=== PATIENT | female | born 1980 | race Caucasian/White ===

== ENCOUNTER → 2017-04-08 | Outpatient (REF) | payer BC | LOC: M SFHCWAGY 08:32 | PROVIDERS: ATTEND Nurse Practitioner Family | DX: Z12.4 Encounter for screening for malignant neoplasm of cervix (principal); R31.29 Other microscopic hematuria | CPT/HCPCS: 87086; G0123 ==

== ENCOUNTER → 2017-08-03 | Outpatient (CLI) | payer BC ==
[2017-08-03 16:38] LABS: BASO # 0.1 10^3/uL (0.0-0.2); BASO % 0.5 % (0.0-1.0); EOS # 0.1 10^3/uL (0.0-0.50); EOS % 0.8 % (0.0-3.0); HEMATOCRIT 33.4 % (36.0-47.0); HEMOGLOBIN 11.8 g/dl (12.0-15.5); IMMATURE GRANULOCYTE % 2.5 % (0-3.0); LYMPH # 2.1 10^3/uL (1.5-4.5); LYMPH % 15.5 % (24.0-44.0); MEAN CORPUSCULAR HEMOGLOBIN 32.7 pg (27.0-33.0); MEAN CORPUSCULAR HGB CONC 35.3 g/dl (32.0-36.5); MEAN CORPUSCULAR VOLUME 92.5 fl (80.0-96.0); MONO # 0.9 10^3/uL (0.0-0.8); MONO % 6.6 % (0.0-5.0); NEUTROPHILS % 74.1 % (36.0-66.0); PLATELET COUNT, AUTOMATED 266 10^3/uL (150-450); RED BLOOD COUNT 3.61 10^6/uL (4.00-5.40); RED CELL DISTRIBUTION WIDTH 12.1 % (11.5-14.5); WHITE BLOOD COUNT 13.5 10^3/uL (4.0-10.0)
[2017-08-03 18:31] LABS: CHLAMYDIA DNA AMPLIFICATION NEGATIVE (NEGATIVE); GC DNA AMPLIFICATION NEGATIVE (NEGATIVE)
[2017-08-04 11:38] LABS: RUBELLA IgG QUALITATIVE IMMUNE (IMMUNE)
[2017-08-04 11:41] LABS: HBsAg Prenatal NEGATIVE (NEGATIVE)
[2017-08-04 12:08] LABS: HIV 1&2 SCREEN CENTAUR NEGATIVE (NEGATIVE)
== END ==
LOC: M LAB 15:57
DX: Z34.81 Encounter for supervision of other normal pregnancy, first trimester (principal); Z3A.13 13 weeks gestation of pregnancy; Z36.89 Encounter for other specified antenatal screening
CPT/HCPCS: 86762

== ENCOUNTER → 2017-08-11 | Outpatient (CLI) | payer BC | LOC: M LAB 16:41 | DX: Z36.9 Encounter for antenatal screening, unspecified (principal) | CPT/HCPCS: 36415 ==

== ENCOUNTER → 2017-08-27 | Outpatient (CLI) | payer BC | LOC: M RAD 16:17 | DX: Z34.82 Encounter for supervision of other normal pregnancy, second trimester (principal); Z3A.19 19 weeks gestation of pregnancy | CPT/HCPCS: 76811 ==

== ENCOUNTER → 2017-09-25 | Outpatient (CLI) | payer BC | LOC: M SMT 14:20 | DX: Z36.89 Encounter for other specified antenatal screening (principal); Z3A.24 24 weeks gestation of pregnancy | CPT/HCPCS: 76816 ==

== ENCOUNTER → 2017-10-09 | Outpatient (CLI) | payer BC ==
[2017-10-09 10:46] LABS: BASO % 0.4 % (0.0-1.0); EOS # 0.2 10^3/uL (0.0-0.50); EOS % 1.8 % (0.0-3.0); HEMATOCRIT 34.5 % (36.0-47.0); HEMOGLOBIN 11.6 g/dl (12.0-15.5); IMMATURE GRANULOCYTE % 2.3 % (0-3.0); LYMPH # 1.1 10^3/uL (1.5-4.5); LYMPH % 10.7 % (24.0-44.0); MEAN CORPUSCULAR HEMOGLOBIN 32.8 pg (27.0-33.0); MEAN CORPUSCULAR HGB CONC 33.6 g/dl (32.0-36.5); MEAN CORPUSCULAR VOLUME 97.5 fl (80.0-96.0); MONO # 0.8 10^3/uL (0.0-0.8); NEUTROPHILS # 8.3 10^3/uL (1.8-7.7); NEUTROPHILS % 77.8 % (36.0-66.0); PLATELET COUNT, AUTOMATED 258 10^3/uL (150-450); RED BLOOD COUNT 3.54 10^6/uL (4.00-5.40); RED CELL DISTRIBUTION WIDTH 12.7 % (11.5-14.5); WHITE BLOOD COUNT 10.7 10^3/uL (4.0-10.0)
[2017-10-09 11:12] LABS: GLUCOSE CHALLENGE TEST 1 HOUR 63 MG/DL (LESS THAN 140)
== END ==
LOC: M SMT 07:58
DX: Z34.82 Encounter for supervision of other normal pregnancy, second trimester (principal); Z36.89 Encounter for other specified antenatal screening
CPT/HCPCS: 82950

== ENCOUNTER → 2017-12-22 | Outpatient (REF) | payer BC | LOC: M LAB REF 17:18 | DX: Z34.83 Encounter for supervision of other normal pregnancy, third trimester (principal) | CPT/HCPCS: 87081 ==

== ENCOUNTER 2018-01-13 18:59 | Inpatient (IN) | payer BC ==
[2018-01-13] MEDS ORDERED: LR 1,000 ML IV (20:48)
[2018-01-13] MEDS ORDERED: OXYTOCIN DRIP 30 UNITS in APPROPRIATE DILUENT 1 EA IV (21:00)
[2018-01-13 21:31] LABS: HEMATOCRIT 31.2 % (36.0-47.0); HEMOGLOBIN 10.5 g/dl (12.0-15.5); MEAN CORPUSCULAR HEMOGLOBIN 30.8 pg (27.0-33.0); MEAN CORPUSCULAR HGB CONC 33.7 g/dl (32.0-36.5); MEAN CORPUSCULAR VOLUME 91.5 fl (80.0-96.0); PLATELET COUNT, AUTOMATED 204 10^3/uL (150-450); RED BLOOD COUNT 3.41 10^6/uL (4.00-5.40); WHITE BLOOD COUNT 9.3 10^3/uL (4.0-10.0)
[2018-01-13] MEDS ORDERED: FENTANYL 2MCG/ML ROPIVACAINE 0.2% IN 0.9% NACL 200ML IVBAG As Ordered (23:37)
[2018-01-14] MEDS ORDERED: FENTANYL/ROPIVACAINE/NACL BAG 200 ML EPIDURAL (00:38)
[2018-01-14] MEDS ORDERED: EPIDURAL COMMENT XX (00:38)
[2018-01-14] MEDS ORDERED: NALOXONE INJ 0.4 MG/1 ML VIAL (J2310) IV (00:38)
[2018-01-14] MEDS ORDERED: EPIDURAL/PCA KEYS XX (00:38)
[2018-01-14] MEDS ORDERED: diphenhydrAMINE INJ 50MG/ML VIAL (J1200) IV (00:38)
[2018-01-14] MEDS ORDERED: ONDANSETRON 4MG/2ML VIAL (J2405) IV (00:38)
[2018-01-14] MEDS ORDERED: REFRIGERATOR IV KEYS XX (00:38)
[2018-01-14] MEDS ORDERED: LACTATED RINGER'S 1000 ML IV (00:38)
[2018-01-14] MEDS ORDERED: ePHEDrine SULFATE 25 MG/5 ML(5MG/ML) SYRINGE IV (00:38)
[2018-01-14] MEDS: OXYTOCIN DRIP 30 UNITS in APPROPRIATE DILUENT 1 EA IV (05:02)
[2018-01-14] MEDS ORDERED: MEASLES,MUMPS,RUBELLA VACCINE INJ (MMR-II) (90707) SC (05:15)
[2018-01-14] MEDS ORDERED: ACETAMINOPHEN 500 MG TAB PO (05:15)
[2018-01-14] MEDS ORDERED: DIBUCAINE 1% OINTMENT 30GM TOP (05:15)
[2018-01-14] MEDS ORDERED: MOM 30ML SUSPENSION UDC PO (05:15)
[2018-01-14] MEDS ORDERED: DOCUSATE SODIUM 100 MG CAP PO (05:15)
[2018-01-14] MEDS ORDERED: ANUSOL HC CREAM 30GM TOP (05:15)
[2018-01-14] MEDS ORDERED: METHYLERGONOVINE MALEATE 0.2 MG TAB PO (05:15)
[2018-01-14] MEDS ORDERED: RHOGAM 300 MCG (1500 IU) INJ (J2790) IM (05:15)
[2018-01-14] MEDS: IBUPROFEN 800 MG TAB PO ×3 (06:40→21:57)
[2018-01-14] MEDS: PRENATAL VITAMINS CHEWABLE TABLET PO (08:06)
[2018-01-15] MEDS: IBUPROFEN 800 MG TAB PO (08:04)
[2018-01-15] MEDS: PRENATAL VITAMINS CHEWABLE TABLET PO (08:05)
[2018-01-15] MEDS: INFLUENZA QUADRIVALENT PF VACCINE 0.5ML SYRINGE (90686) IM (10:50)
== END 2018-01-15 11:50 | disposition home or self-care (01) | DRG 560 ==
LOC: M LDO 18:59 → M OBS 01-14 07:28 → M LDI 19:15
PROVIDERS: Obstetrics & Gynecology
PROC: 10E0XZZ Delivery of Products of Conception, External Approach (ICD-10-PCS; principal; 2018-01-14)
PROC: 0HQ9XZZ Repair Perineum Skin, External Approach (ICD-10-PCS; 2018-01-14)
DX: O42.02 Full-term premature rupture of membranes, onset of labor within 24 hours of rupture (principal); O69.81X0 Labor and delivery complicated by cord around neck, without compression, not applicable or unspecified; O70.0 First degree perineal laceration during delivery; Z3A.39 39 weeks gestation of pregnancy; Z37.0 Single live birth

== ENCOUNTER → 2018-04-22 | Outpatient (REF) | payer BC ==
[~2018-04-22] MED LIST: IBUP-1114 PO; MAPA500T2 PO; PRENTAB9 PO
[2018-04-25 18:21] LABS: HPV HYBRID CAPTURE II Negative (Negative)
== END ==
LOC: M LAB REF 18:09
PROVIDERS: ATTEND Obstetrics & Gynecology
DX: Z12.4 Encounter for screening for malignant neoplasm of cervix (principal)
CPT/HCPCS: 87624; G0123

== ENCOUNTER → 2019-01-24 | Outpatient (REF) | payer BC | LOC: M LAB REF 09:24 | PROVIDERS: ATTEND Physician Assistant | DX: J02.9 Acute pharyngitis, unspecified (principal) ==

== ENCOUNTER → 2019-11-17 | Outpatient (REF) | payer BC | LOC: M SFHCPLAZ 10:30 | PROVIDERS: ATTEND Nurse Practitioner Family | DX: Z12.4 Encounter for screening for malignant neoplasm of cervix (principal) | CPT/HCPCS: 87624; G0123 ==

== ENCOUNTER → 2019-11-18 | Outpatient (CLI) | payer BC ==
--- NOTE | 2019-12-07 13:31 | REPMRS ---
Patient History The patient states she had a clinical breast exam in November 2019. Patient had first child at age 37. Family history of ovarian cancer at age 50 in maternal grandmother, lung cancer at age 71 in maternal grandfather. Digital Woman Screen Mammo: November 18, 2019 - Exam #: [id number] Bilateral CC and MLO view(s) were taken. Technologist: Karla Fish, Technologist No prior studies available for comparison. FINDINGS: The breast tissue is heterogeneously dense. This may lower the sensitivity of mammography. The Volpara volumetric breast density category is: C. There is no evidence of dominant mass, architectural distortion, or grouped microcalcification typical of malignancy. 3-D tomosynthesis shows no additional findings. Report was delayed due to a protracted computer network disruption experienced by this facility. Assessment: BI-RADS/ACR category 1 mammogram. Negative Mammogram. Recommendation Routine screening mammogram of both breasts in 1 year (for women over age 40). This patient's Lifetime Breast Cancer RIsk is estimated at 15.6 %. This mammogram was interpreted with the aid of an FDA-approved computer-aided dectection system. Electronically Signed By: Carter Banks MD 12/07/19 [id number]
--- NOTE | 2019-12-09 12:19 | REP ---
PELVIC ULTRASOUND INCLUDING TRANSABDOMINAL, ENDOVAGINAL, AND DOPPLER ULTRASOUND ASSESSMENT Delay in reporting results from malfunction of the hospital computer system as the result of a malware attack. FINDINGS: The uterus is anteverted and normal size measuring 8.0 x 4.4 x 5.7 cm. The endometrium measures 8 mm and is not unusually thickened. Within the myometrium, there is a focal heterogeneous zone in the body of the uterus anteriorly measuring 2.8 x 2.8 x 2.6 cm, likely a fibroid. It extends from the submucosal surface to the subserosal surface. RIGHT OVARY: The right ovary is normal size measuring 2.3 x 1.8 x 2.0 cm. There are multiple follicles. There is no dominant right ovarian mass or cyst. There is vascular flow in the right ovary with a Doppler resistive index in the parenchymal arteries measuring 0.58. LEFT OVARY: The left ovary is normal size measuring 3.2 x 2.2 x 2.2 cm. There is a left ovarian follicle measuring 1.3 x 1.5 x 1.7 cm. There is a second follicle containing internal debris measuring 1.1 x 1.1 x 1.1 cm. There is no dominant left ovarian mass or cyst otherwise. There is vascular flow in the left ovary with a Doppler resistive index in the parenchymal arteries measuring 0.48. IMPRESSION: There is a fibroid in the body of the myometrium anteriorly measuring up to 2.8 cm extending from the submucosal surface to the subserosal surface. There are two left ovarian follicles. Otherwise, negative pelvic ultrasound. MTDD
== END ==
LOC: M WHC 06:45
PROVIDERS: ATTEND Nurse Practitioner Family
DX: Z12.31 Encounter for screening mammogram for malignant neoplasm of breast (principal); N92.0 Excessive and frequent menstruation with regular cycle; D25.9 Leiomyoma of uterus, unspecified

== ENCOUNTER → 2020-02-25 | Outpatient (CLI) | payer BC ==
--- NOTE | 2020-02-25 10:43 | REP ---
INDICATION: R10.811 RUQ TENDERNESS. COMPARISON: None. TECHNIQUE: Right upper quadrant scanning. FINDINGS: Scanning through the right upper quadrant of the abdomen demonstrates a normal sized, thin-walled gallbladder without evidence of stone or polyp. Common bile duct is normal measuring 0.3 cm in greatest diameter. There is a 1.1 x 1.1 x 1.1 cm hyperechoic lesion high in the right lobe of the liver adjacent to the diaphragm consistent with a benign hemangioma. No other focal liver lesion is seen. Liver size is normal. No pancreatic abnormality is observed. No right renal abnormality is seen. There is no evidence of ascites. The right kidney measures 12.7 x 5.5 x 4.1 cm. IMPRESSION: 1.1 cm hyperechoic lesion in the right lobe of the liver near the diaphragm consistent with benign hemangioma. Otherwise negative right upper quadrant sonography.. <Electronically signed by Carter Banks > 02/25/20 3655
== END ==
LOC: M WHC 07:42
PROVIDERS: ATTEND Physician Assistant
DX: R10.811 Right upper quadrant abdominal tenderness (principal); K76.89 Other specified diseases of liver

== ENCOUNTER → 2020-02-25 | Outpatient (REF) | payer BC ==
[2020-02-25 10:55] LABS: HEMATOCRIT 39.4 % (36.0-47.0); HEMOGLOBIN 12.9 g/dl (12.0-15.5); MEAN CORPUSCULAR HEMOGLOBIN 31.1 pg (27.0-33.0); MEAN CORPUSCULAR HGB CONC 32.7 g/dl (32.0-36.5); MEAN CORPUSCULAR VOLUME 94.9 fl (80.0-96.0); PLATELET COUNT, AUTOMATED 223 10^3/uL (150-450); RED BLOOD COUNT 4.15 10^6/uL (4.00-5.40); WHITE BLOOD COUNT 4.4 10^3/uL (4.0-10.0)
[2020-02-25 11:26] LABS: ALBUMIN 4.2 GM/DL (3.2-5.2); ALT/SGPT 22 U/L (12-78); BILIRUBIN,TOTAL 0.6 MG/DL (0.2-1.0); BLOOD UREA NITROGEN 13 MG/DL (7-18); CALCIUM LEVEL 9.1 MG/DL (8.5-10.1); CARBON DIOXIDE LEVEL 28 MEQ/L (21-32); CHLORIDE LEVEL 109 MEQ/L (98-107); CHOLESTEROL LEVEL 139 MG/DL (<200); CHOLESTEROL RISK RATIO 2.278 (<5); CREATININE FOR GFR 0.72 MG/DL (0.55-1.30); GLOMERULAR FILTRATION RATE > 60.0 (>58); GLUCOSE, FASTING 78 MG/DL (70-100); HDL CHOLESTEROL 61 MG/DL (>40); LDL CHOLESTEROL 67 MG/DL (<100); NON-HDL-C 78 MG/DL; SODIUM LEVEL 142 MEQ/L (136-145); TOTAL PROTEIN 7.2 GM/DL (6.4-8.2); TRIGLYCERIDES LEVEL 55 MG/DL (<150)
== END ==
LOC: M PLALAB 08:35
PROVIDERS: ATTEND Physician Assistant
DX: R10.811 Right upper quadrant abdominal tenderness (principal); R10.11 Right upper quadrant pain; N92.0 Excessive and frequent menstruation with regular cycle; Z82.49 Family history of ischemic heart disease and other diseases of the circulatory system

== ENCOUNTER → 2020-03-21 | Outpatient (REF) | payer BC | LOC: M SFHCADAM 19:38 | PROVIDERS: ATTEND Physician Assistant | DX: R10.811 Right upper quadrant abdominal tenderness (principal); R50.9 Fever, unspecified ==

== ENCOUNTER → 2020-04-12 | Outpatient (CLI) | payer BC ==
[~2020-04-12] MED LIST changes: +GASTROGRAFIN SOLUTION 30ML (Q9963) As Ordered ONE; +ISOVUE-370 76% 100ML VIAL As Ordered ONE
--- NOTE | 2020-04-13 10:14 | REP ---
INDICATION: FAMILY HISTORY OF OVARIAN CANCER. COMPARISON: None TECHNIQUE: Axial contrast-enhanced images from the lung bases to the pubic symphysis using oral and 100 cc Isovue 370 intravenous contrast material. Precontrast images of the abdomen along with coronal and sagittal reformations obtained. This CT examination was performed using the following dose reduction techniques: Automated exposure control, adjustment of mA and/or kv according to the patient's size, and the use of iterative reconstruction technique. FINDINGS: Lung bases are clear. Visualized heart and pericardium normal. Liver includes 1.3 cm hypodensity in the posterior right lobe approaching the dome (series 301; image 20) which is nonspecific and may represent cyst versus hemangioma versus other pathology. The spleen, pancreas, gallbladder, bilateral adrenal glands and kidneys are normal. The enteric system including stomach, small, and large bowel appears normal. No evidence for obstruction or acute inflammatory process. Normal terminal ileum and appendix are identified in the right lower quadrant. Pelvis demonstrates normal bladder and age-appropriate uterus/adnexa with incidental 2.3 cm left ovarian cyst likely physiologic. No ascites. No free air. No intraperitoneal or retroperitoneal adenopathy. Abdominal aorta and vasculature appear normal. Musculoskeletal structures are intact and without acute osseous abnormality. IMPRESSION: 1. 1.3 cm hepatic hypodensity likely representing cyst versus hemangioma. Consider ultrasound evaluation follow-up. 2. A 2.3 cm left ovarian cyst is identified and most likely physiologic. 3. Otherwise normal CT of the abdomen and pelvis. <Electronically signed by Emanuel Gonzales > 04/13/20 1018
== END ==
LOC: M RAD 15:29
PROVIDERS: ATTEND Physician Assistant
DX: R10.11 Right upper quadrant pain (principal); Z80.41 Family history of malignant neoplasm of ovary
CPT/HCPCS: 74178; Q9963; Q9967

== ENCOUNTER → 2020-12-06 | Outpatient (CLI) | payer BC ==
[~2020-12-06] MED LIST changes: -GASTROGRAFIN SOLUTION 30ML (Q9963) As Ordered ONE; -ISOVUE-370 76% 100ML VIAL As Ordered ONE
--- NOTE | 2020-12-06 09:12 | REP ---
INDICATION: K76.89 DZ OF LIVER COMPARISON: CT dated 04/12/2020 TECHNIQUE: Real time quiñones scale ultrasound examination using curved array transducer. FINDINGS: Liver is normal in contour, size, and echogenicity measuring roughly 15 cm in craniocaudal length. There is a small 1.3 x 0.7 x 1.2 cm hyperechoic focus along the subdiaphragmatic right hepatic lobe which may represent small hemangioma. Pancreas is incompletely evaluated due to interposed bowel gas. The gallbladder is normal and without gallstones, wall thickening, or pericholecystic fluid. No biliary ductal dilatation is appreciated and the common bile duct measures 3.5 mm diameter. Right kidney is normal in reniform shape without hydronephrosis and measures 12.3 x 5.1 x 3.4 cm. No ascites in the visualized right upper quadrant. IMPRESSION: 1. Small hyperechoic focus in the right hepatic lobe. Finding is stable compared with ultrasound dated 02/25/2020 and most compatible with hemangioma. <Electronically signed by Emanuel Gonzales > 12/06/20 0908
== END ==
LOC: M RAD 08:26
PROVIDERS: ATTEND Student in an Organized Health Care Education/Training Program
DX: K76.89 Other specified diseases of liver (principal)

== ENCOUNTER → 2020-12-07 | Outpatient (CLI) | payer BC ==
--- NOTE | 2020-12-07 09:22 | REPMRS ---
Patient History The patient states she had a clinical breast exam in December 07, 2020. Family history of ovarian cancer at age 50 in maternal grandmother, unknown cancer at age 71 in maternal grandfather. Pt denied prengnancy. 5 lb unintentional weight gain. Patient states no breast complaints today. Patient has signed MRS History Sheet. Digital Woman Screen Mammo: December 07, 2020 - Exam #: [id number] Bilateral CC and MLO view(s) were taken. Technologist: RT Bee Prior study comparison: November 18, 2019, bilateral digital woman screen mammo performed at [facility]. FINDINGS: The breast tissue is heterogeneously dense. This may lower the sensitivity of mammography. The Volpara volumetric breast density category is: C. There is a moderate amount of heterogeneously dense fibroglandular tissue which is fairly symmetric. There is no interval development of dominant mass, architectural distortion, or grouped microcalcification typical of malignancy. There has been no change in the appearance of the mammogram from the prior studies. 3-D tomosynthesis shows no additional findings. Assessment: BI-RADS/ACR category 1 mammogram. Negative Mammogram. Recommendation Routine screening mammogram of both breasts in 1 year (for women over age 40). This patient's [facility] Lifetime Breast Cancer RIsk is estimated at 15.4 %. This mammogram was interpreted with the aid of an FDA-approved computer-aided dectection system. Electronically Signed By: Carter Banks MD 12/07/20 0921
== END ==
LOC: M WHC 08:19
PROVIDERS: ATTEND Nurse Practitioner Women's Health
DX: Z12.31 Encounter for screening mammogram for malignant neoplasm of breast (principal)

== ENCOUNTER → 2020-12-07 | Outpatient (REF) | payer BC | LOC: M SFHCWAGY 12:10 | PROVIDERS: ATTEND Nurse Practitioner Women's Health | DX: Z12.4 Encounter for screening for malignant neoplasm of cervix (principal) ==

== ENCOUNTER → 2021-02-23 | Outpatient (CLI) | payer BC ==
[~2021-02-23] MED LIST changes: +FAMO40TA3 PO
== END ==
LOC: M LABSMTC 12:10
PROVIDERS: ATTEND Anesthesiology
DX: Z01.818 Encounter for other preprocedural examination (principal); Z11.52 Encounter for screening for COVID-19

== ENCOUNTER 2021-02-28 06:04 | Day surgery (SDC) | payer BC ==
[~2021-02-28] VITALS: Ht 160 cm; Wt 53.1 kg
[~2021-02-28 06:04] MED LIST changes: +LR 1,000 ML IV ONE; +UNRESOLVED CLARIFICATION ENTRY XX SCH
--- OUTSIDE RECORDS SUMMARY | 2021-02-28 06:08 | CCD ---
Author Author [facility] Organization [facility] Address Unknown Phone Unavailable Care Team Providers Care Silver Plater Name Role Phone BrightYuval Unavailable PROBLEMS Type Condition ICD9-CM Code [id number] Code Onset Dates Condition S tatus W/U Status Risk SNOMED Code Notes Problem Lesion of liver K76.9 Active confirmed 3003 52339 Problem Abnormal uterine bleeding (AUB) N93.9 Active confirmed 60843305833955 Problem Female infertility of unspecified origin N97.9 Active confirmed 7680055 Problem Family history of ovarian cancer Z80.41 Active confirmed 746534329 Problem Family history of heart disease Z82.49 Active confi rmed [id number] We will order routine screening blood work and follow up based on the results Problem Menorrhagia with regular cycle N92.0 Active confir med [id number] We will check a CBC ALLERGIES Allergen (clinical drug ingredient) Drug/Non Drug Allergy do cumented on EMR Reaction Allergy Type Onset Date Status amoxicillin Amoxicillin([facility] Code:[address]-14) Rash,hives Drug Aller gy Active Pollen Pollen congestion Drug Allergy Active ENCOUNTERS from 1978 to 2021-02-06 Encounter Location Date Provider Diagnosis [facility] [address] [place] [address] [place] [address] Jan, Yuval Novoa IMMUNIZATIONS Vaccine Route Administration Date Status Influenza 18 yrs & older Flublok IM Intramuscular Feb 22, 2020 Administered SOCIAL HISTORY Tobacco Use: Social History Observation Description Date Details (start date - stop date) Never Smoker Sex Assigned At : Social History Observation Description Sex Assigned At Unknown Yarsanism: Question Answer Notes Yarsanism 33 None Alcohol Screening: Question Answer Notes Did you have a drink containing alcohol in the past year? Ye s Points 5 Interpretation Positive How often did you have six or more drinks on one occas ion in the past year? Monthly (2 points) How many drinks did you have on a typica l day when you were drinking in the past year? 3 or 4 (1 point) How often did you have a drink containing alcohol in t he past year? 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 Medical History [place] breast cancer risk calcula vincent at 12.6 % Medical History family history of heart disease Medical History GERD Surgical History LEEP Surgical History colp X 2 Surgical History wrist surgery-left Surgical History oral surgery-reconstructive gum surgery Surgical History appendectomy and laparoscopy 2014 Hospitalization History surgery as listed above Hospitalization History Childbirth Goals Section No Information Health Concerns No Information MEDICAL EQUIPMENT No Information MENTAL STATUS No Information FUNCTIONAL STATUS No Information ASSESSMENTS No Information PLAN OF TREATMENT Next Appt Details Provider Name:Yuval Novoa 2021-02-15 03:45:00 PM, [address] [place] [address], [place], [address], Provider Name:Yuval Novoa 2021-02-28 07:30:00 AM, [address] [place] [address], [place], [address], Provider Name:Yuval Novoa 2021-03-21 08:15:00 AM, [address] [place] [address], [place], [address], Provider Name:Yuval Novoa 2021-04-12 11:45:00 AM, [address] [place] [address], [place], [address], Insurance Providers Payer Name Payer Address Payer Phone Insured Name Patient Relati onship to Insured Coverage Start Date Coverage End Date [facility] [phone] [facility] [id number] TIFFANY,DIANE DANG self
--- OUTSIDE RECORDS SUMMARY | 2021-02-28 06:09 | CCD ---
Author Author [facility] Organization [facility] Address Unknown Phone Unavailable Care Team Providers Care Etl Tester Name Role Phone BrightYuval Unavailable PROBLEMS Type Condition ICD9-CM Code [id number] Code Onset Dates Condition S tatus W/U Status Risk SNOMED Code Notes Problem Lesion of liver K76.9 Active confirmed 3003 73371 Problem Abnormal uterine bleeding (AUB) N93.9 Active confirmed [id number] Problem Female infertility of unspecified origin N97.9 Active confirmed 1760717 Problem Family history of ovarian cancer Z80.41 Active confirmed 542774385 Problem Family history of heart disease Z82.49 Active confi rmed [id number] We will order routine screening blood work and follow up based on the results Problem Menorrhagia with regular cycle N92.0 Active confir med [id number] We will check a CBC ALLERGIES Allergen (clinical drug ingredient) Drug/Non Drug Allergy do cumented on EMR Reaction Allergy Type Onset Date Status amoxicillin Amoxicillin([facility] Code:[address]-81) Rash,hives Drug Aller gy Active Pollen Pollen congestion Drug Allergy Active ENCOUNTERS from 1978 to 2021-02-06 Encounter Location Date Provider Diagnosis [facility] [phone] [place] [address] Jan, Yuval Novoa IMMUNIZATIONS Vaccine Route Administration Date Status Influenza 18 yrs & older Flublok IM Intramuscular Feb 22, 2020 Administered SOCIAL HISTORY Tobacco Use: Social History Observation Description Date Details (start date - stop date) Never Smoker Sex Assigned At : Social History Observation Description Sex Assigned At Unknown Oriental Orthodox: Question Answer Notes Oriental Orthodox 33 None Alcohol Screening: Question Answer Notes [...] Information RESULTS No Results REASON FOR VISIT SURGERY* MEDICAL (GENERAL) HISTORY Type Description Date Medical [...] Details Provider Name:Yuval Novoa 2021-02-15 03:45:00 PM, [address] [place] [address], [place], [address], Provider Name:Yuval Novoa 2021-02-28 07:30:00 AM, [address] [place] [address], [place], [address], Provider Name:Yuval Novoa 2021-03-21 08:15:00 AM, [address] [place] [address], [place], [address], Provider Name:Yuval Novoa 2021-04-12 11:45:00 AM, [address] [place] [address], [place], [address], Insurance Providers Payer Name Payer Address Payer Phone Insured Name Patient Relati onship to Insured Coverage Start Date Coverage End Date [facility] [id number] [facility] [id number] PANCHOIBROBINSON,DIANE DANG self
--- OUTSIDE RECORDS SUMMARY | 2021-02-28 06:09 | CCD ---
Author Author [facility] Organization [facility] [employer] [facility] Address Unknown Phone Unavailable Care Team Providers Care Reception Clerk Name Role Phone Torri Julieta Unavailable PROBLEMS Type Condition ICD9-CM Code PTR72-OV Code Onset Dates Condition S tatus W/U Status Risk SNOMED Code Notes Problem Lesion of liver K76.9 Active confirmed 3003 89275 Problem Abnormal uterine bleeding (AUB) N93.9 Active confirmed 63808185397542 Problem Female infertility of unspecified origin N97.9 Active confirmed 9214922 Problem Family history of ovarian cancer Z80.41 Active confirmed 867532583 Problem Family history of heart disease Z82.49 Active confi rmed 123108059 We will order routine screening blood work and follow up based on the results Problem Menorrhagia with regular cycle N92.0 Active confir med 322749244 We will check a CBC ALLERGIES Allergen (clinical drug ingredient) Drug/Non Drug Allergy do cumented on EMR Reaction Allergy Type Onset Date Status amoxicillin Amoxicillin([facility] Code:[address]-79) Rash,hives Drug Aller gy Active environmental congestion Non Drug Allergy Activ e ENCOUNTERS from 1978 to 2021-01-12 Encounter Location Date Provider Diagnosis [facility] [address] [phone] [place] [address] Jan, Julieta Wild Menorrhagia with reg ular cycle N92.0 IMMUNIZATIONS Vaccine Route Administration Date Status Influenza 18 yrs & older Flublok IM Intramuscular Feb 22, 2020 Administered SOCIAL HISTORY Tobacco Use: Social History Observation Description Date Details (start date - stop date) Never Smoker Sex Assigned At : Social History Observation Description Sex Assigned At Unknown Zoroastrianism: Question Answer Notes Zoroastrianism 33 None Alcohol Screening: Question Answer Notes [...] Notes Start Da te End Date Status 28-0.8 MG Orally Not-Ta nelson Sulfamethoxazole-Trimethoprim 800-160 MG 1 tablet Oral ly Twice a day for 10 day(s) Nov, Active Reglan 10 MG 1 tablet Orally at bedtime for 30 Days Mar Not-Taking Diflucan 150 MG 1 tablet Orally once for 1 days May, Active Famotidine 10 MG 1 tablet as needed Orally Twice a day Nov, Active Lysteda 650 MG 2 tab Orally 3 times a day Jan, Not-Taking PROCEDURES No Information RESULTS Component Value Reference Range CBC - Complete Blood Count Reviewed date:01/24/2020 15:42:23 Interpretation:Normal Performing Lab:[facility], [facility] [address] [address] , ,[place] [address] WHITE BLOOD COUNT 5.2 4.0-10.0 RED BLOOD COUNT 3.96 4.00-5.40 HEMOGLOBIN 12.5 12.0-15.5 HEMATOCRIT 38.1 36.0-47.0 MEAN CORPUSCULAR VOLUME 96.2 80.0-96.0 MEAN CORPUSCULAR HEMOGLOBIN 31.6 27.0-33.0 MEAN CORPUSCULAR HGB CONC 32.8 32.0-36.5 RED CELL DISTRIBUTION WIDTH 11.8 11.5-14.5 PLATELET COUNT, AUTOMATED 253 150-450 REASON FOR VISIT menorraghia MEDICAL (GENERAL) HISTORY Type Description Date Medical [...] gum surgery Surgical History appendectomy and laparoscopy 2015 Hospitalization History surgery as listed above Goals Section No Information Health Concerns No Information MEDICAL EQUIPMENT No Information MENTAL STATUS No Information FUNCTIONAL STATUS No Information ASSESSMENTS Encounter Date Diagnosis Assessment Notes Treatment Notes Treatm ent Clinical Notes Jan, Menorrhagia with regular cycle (ICD-10 - N92.0) PLAN OF TREATMENT Medication Medication Name Sig Start Date Stop Date Diflucan 150 MG 1 tablet Orally once for 1 days May, Next Appt Details Provider Name:Yuval Novoa, 2021-01-16 11:15:00 AM, [address], , [place], [address], Insurance Providers Payer Name Payer Address Payer Phone Insured Name Patient Relati onship to Insured Coverage Start Date Coverage End Date BCBS OF [facility] [phone] [facility] [address] DIANE ALLEN self
--- OUTSIDE RECORDS SUMMARY | 2021-02-28 06:09 | CCD ---
Author Author [facility] Organization [facility] Address Unknown Phone Unavailable Care Team Providers Care Sandwich Board Carrier Name Role Phone NovoaYuval Unavailable PROBLEMS Type Condition ICD9-CM Code SPI50-FT Code Onset Dates Condition S tatus W/U Status Risk SNOMED Code Notes Problem Lesion of liver K76.9 Active confirmed 3003 32403 Problem Abnormal uterine bleeding (AUB) N93.9 Active confirmed 60386543517877 Problem Female infertility of unspecified origin N97.9 Active confirmed 5716127 Problem Family history of ovarian cancer Z80.41 Active confirmed 052728662 Problem Family history of heart disease Z82.49 Active confi rmed 800643166 We will order routine screening blood work and follow up based on the results Problem Menorrhagia with regular cycle N92.0 Active confir med [id number] We will check a CBC ALLERGIES Allergen (clinical drug ingredient) Drug/Non Drug Allergy do cumented on EMR Reaction Allergy Type Onset Date Status amoxicillin Amoxicillin([facility] Code:[address]-95) Rash,hives Drug Aller gy Active environmental congestion Non Drug Allergy Activ e ENCOUNTERS from 1978 to 2020-12-19 Encounter Location Date Provider Diagnosis [facility] [address] [facility] [phone] [place] [address] Dec, Yuval Novoa IMMUNIZATIONS Vaccine Route Administration Date Status Influenza 18 yrs & older Flublok IM Intramuscular Feb 22, 2020 Administered SOCIAL HISTORY Tobacco Use: Social History Observation Description Date Details (start date - stop date) Never Smoker Sex Assigned At : Social History Observation Description Sex Assigned At Unknown Buddhism: Question Answer Notes Buddhism 33 None Alcohol Screening: Question Answer Notes [...] day Jan, Not-Taking PROCEDURES No Information RESULTS No Results REASON FOR VISIT appt MEDICAL (GENERAL) HISTORY Type Description Date Medical [...] Information ASSESSMENTS No Information PLAN OF TREATMENT Medication Medication Name Sig Start Date Stop Date Diflucan 150 MG 1 tablet Orally once for 1 days May, Next Appt Details Provider Name:Yuval Novoa, 2021-01-16 11:15:00 AM, [address] [facility], , [place], [address], Insurance Providers Payer Name Payer Address Payer Phone Insured Name Patient Relati onship to Insured Coverage Start Date Coverage End Date BCBS OF [facility] [phone] [facility] [place] [address] TIFFANY,DIANE DANG self
--- OUTSIDE RECORDS SUMMARY | 2021-02-28 06:09 | CCD ---
Author Author [facility] Organization [facility]PO [facility] Address Unknown Phone Unavailable Care Team Providers Care Green Chain Offbearer Name Role Phone Yuval Novoa Unavailable PROBLEMS Type Condition ICD9-CM Code LWL01-TO Code Onset Dates Condition S tatus W/U Status Risk SNOMED Code Notes Problem Lesion of liver K76.9 Active confirmed 3003 26896 Problem Abnormal uterine bleeding (AUB) N93.9 Active confirmed 49532728721238 Problem Female infertility of unspecified origin N97.9 Active confirmed 5360960 Problem Family history of ovarian cancer Z80.41 Active confirmed 952384931 Problem Family history of heart disease Z82.49 Active confi rmed [id number] We will order routine screening blood work and follow up based on the results Problem Menorrhagia with regular cycle N92.0 Active confir med [id number] We will check a CBC ALLERGIES Allergen (clinical drug ingredient) Drug/Non Drug Allergy do cumented on EMR Reaction Allergy Type Onset Date Status amoxicillin Amoxicillin([facility] Code:[address]-53) Rash,hives Drug Aller gy Active environmental congestion Non Drug Allergy Activ e ENCOUNTERS from 1978 to 2021-01-21 Encounter Location Date Provider Diagnosis [facility] [address] [phone] [place] [address] Jan, Yuval Novoa Excessive and freque nt menstruation N92.0 IMMUNIZATIONS Vaccine Route Administration Date Status Influenza 18 yrs & older Flublok IM Intramuscular Feb 22, 2020 Administered SOCIAL HISTORY Tobacco Use: Social History Observation Description Date Details (start date - stop date) Never Smoker Sex Assigned At : Social History Observation Description Sex Assigned At Unknown Sikhism: Question Answer Notes Sikhism 33 None Alcohol Screening: Question Answer Notes [...] REASON FOR REFERRAL No Information VITAL SIGNS Weight 118.2 lbs Jan, Height 62.75 in Jan, BMI 21.1 kg/m2 Jan, Blood pressure systolic 116 mm Hg Jan, Blood pressure diastolic 68 mm Hg Jan, MEDICATIONS Medication SIG (Take, Route, Frequency, Duration) Notes Start Da te End Date Status Famotidine 40 MG 1 tablet as needed Orally PRN Nov, Active PROCEDURES No Information RESULTS No Results REASON FOR VISIT surgical discussion per Monica MEDICAL (GENERAL) HISTORY Type Description Date Medical [...] Treatment Notes Treatm ent Clinical Notes Jan, Excessive and frequent menstruation (ICD-10 - N9 2.0) PLAN OF TREATMENT No Information Insurance Providers Payer Name Payer Address Payer Phone Insured Name Patient Relati onship to Insured Coverage Start Date Coverage End Date [facility] [id number] [facility] [id number] DIANE ALLEN self
--- OUTSIDE RECORDS SUMMARY | 2021-02-28 06:09 | CCD ---
Author Author [facility] Organization [facility] Address Unknown Phone Unavailable Care Team Providers Care Price Clerk Name Role Phone Julieta iWld Unavailable PROBLEMS Type Condition ICD9-CM Code LOB38-GK Code Onset Dates Condition S tatus W/U Status Risk SNOMED Code Notes Problem Lesion of liver K76.9 Active confirmed 3003 37021 Problem Abnormal uterine bleeding (AUB) N93.9 Active confirmed [id number] Problem Female infertility of unspecified origin N97.9 Active confirmed 8448918 Problem Family history of ovarian cancer Z80.41 Active confirmed 603650921 Problem Family history of heart disease Z82.49 Active confi rmed [id number] We will order routine screening blood work and follow up based on the results Problem Menorrhagia with regular cycle N92.0 Active confir med [id number] We will check a CBC ALLERGIES Allergen (clinical drug ingredient) Drug/Non Drug Allergy do cumented on EMR Reaction Allergy Type Onset Date Status amoxicillin Amoxicillin([facility] Code:[address]-14) Rash,hives Drug Aller gy Active environmental congestion Non Drug Allergy Activ e ENCOUNTERS from 1978 to 2020-12-07 Encounter Location Date Provider Diagnosis [facility] [address] [facility] [phone] [place] [address] Nov, Julieta Wild Routine gynecologica l examination Z01.419 ; Screening for malignant neoplasm of cervix Z12.4 ; Breast cancer screening by mammogram Z12.31 ; Uterine leiomyoma, unspecified location D25.9 ; Abnormal uterine bleeding (AUB) N93.9 ; Polyp at cervical os N84.1 ; Pelvic pain R10.2 and Candidiasis of vulva and vagina B37.3 IMMUNIZATIONS Vaccine Route Administration Date Status Influenza 18 yrs & older Flublok IM Intramuscular Feb 22, 2020 Administered SOCIAL HISTORY Tobacco Use: Social History Observation Description Date Details (start date - stop date) Never Smoker Sex Assigned At : Social History Observation Description Sex Assigned At Unknown Caodaism: Question Answer Notes Caodaism 33 None Alcohol Screening: Question Answer Notes [...] never smoker never smoker REASON FOR REFERRAL from 1978 to 2020-12-07 Reason 39 year old with uterine fib roid and worsening bleeding, she would like to discuss surgical options, please evaluate and manage as necessary, thank you Diagnosis 1 Uterine leiomyoma, unspecifi ed location (D25.9) Referral Organization [facility] Referring Provider First Name Julieta Referring Provider Last Name Torri Referring Provider Specialty OB - Gynecology Referred Organization [facility] Referred Provider Candis Novoa John Referred Address [address] [place] [phone] [place] [phone] Referred Provider Specialty OB - Gynecology Referral Priority Routine Clinical Notes Julieta Wild NP 10:16:43 AM > sent VITAL SIGNS Weight 123 lbs Nov, Weight-kg 55.79 kg Nov, Height 62.75 in Nov, BMI 21.96 kg/m2 Nov, Blood pressure systolic 124 mm Hg Nov, Blood pressure diastolic 72 mm Hg Nov, MEDICATIONS Medication SIG (Take, Route, Frequency, Duration) [...] No Information RESULTS Component Value Reference Range WWBC DIGITAL / ZAFAR BILATERAL MAMMO SCRE ENING (Ultrasound if indicated) Reviewed date:12/07/2020 11:47:27 Interpretation:Negative Performing Lab:[facility],[address]], ,[place] [id number] REASON FOR VISIT ANNUAL/MAMMO MEDICAL (GENERAL) HISTORY Type Description Date Medical History MICHELE II Medical History endometriosis 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 Medical History Stephanihailey aldrichenedina breast cancer risk calcula vincent at 12.6 % Medical History family history of heart disease Medical History GERD Surgical History LEEP Surgical History colp X 2 Surgical History wrist surgery-left Surgical History oral surgery-reconstructive gum surgery Surgical History appendectomy and laparoscopy 2014 Hospitalization History surgery as listed above Goals Section No Information Health Concerns No Information MEDICAL EQUIPMENT No Information MENTAL STATUS No Information FUNCTIONAL STATUS No Information ASSESSMENTS Encounter Date Diagnosis Assessment Notes Treatment Notes Treatm ent Clinical Notes Nov, Routine gynecological examination (ICD-10 - Z01. 419) Reviewed diet and exercise. Reviewed abnormal breast findings that could indicate breast cancer including: leaking fluid from nipples, excessive itching of breasts/nipples, skin changes, nipple inversion, physical changes in breast appearance, masses, nodules, or lumps noted when palpating breasts Reviewed tracking of cycles, report any abnormal bleeding, pelvic pain, or abnormal vaginal discharge. HCRA completed Nov, Screening for malignant neoplasm of cervix (ICD- 10 - Z12.4) Reviewed ASCCP guidelines for pap screening and frequency, reviewed utility of HPV testing as well and when next pap will be due Nov, Breast cancer screening by mammogram (ICD-10 - Z 12.31) Reviewed screening intervals with mammography, recommend annual screening until age 75. Reviewed breast awareness, know what is normal for you so that you can detect any changes in the breasts, check breasts regularly, in a routine that you are comfortable with. Nov, Uterine leiomyoma, unspecified location (ICD-10 - D25.9) will refer to Dr Novoa for surgical consult Nov, Abnormal uterine bleeding (AUB) (ICD-10 - N93.9) excessive menses, likely r/t uterine fibroid Nov, Polyp at cervical os (ICD-10 - N84.1) small, did not remove, could not visualize stalk, left intact as pt is not noting postcoital bleeding Nov, Pelvic pain (ICD-10 - R10.2) hx of endometriosis, will refer for surgical consult Nov, Candidiasis of vulva and vagina (ICD-10 - B37.3) pt started on abt yesterday for abscess, she is requesting an rx for diflucan PLAN OF TREATMENT Medication Medication Name Sig Start Date Stop Date Diflucan 150 MG 1 tablet Orally once for 1 days May, Treatment Notes Assessment Notes Clinical Notes Routine gynecological examination Review ed diet and exercise. Reviewed abnormal breast findings that could indicate breast cancer including: leaking fluid from nipples, excessive itching of breasts/nipples, skin changes, nipple inversion, physical changes in breast appearance, masses, nodules, or lumps noted when palpating breastsReviewed tracking of cycles, report any abnormal bleeding, pelvic pain, or abnormal vaginal discharge.RA completed Screening for malignant neoplasm of cervix Reviewed ASCCP guidelines for pap screening and frequency, reviewed utility of HPV testing as well and when next pap will be due Breast cancer screening by mammogram Rev iewed screening intervals with mammography, recommend annual screening until age 75. Reviewed breast awareness, know what is normal for you so that you can detect any changes in the breasts, check breasts regularly, in a routine that you are comfortable with. Uterine leiomyoma, unspecified location will refer to Dr Novoa for surgical consult Abnormal uterine bleeding (AUB) excessiv e menses, likely r/t uterine fibroid Polyp at cervical os small, did not ismael ve, could not visualize stalk, left intact as pt is not noting postcoital bleeding Pelvic pain hx of endometriosis, will refer for surgical consult Candidiasis of vulva and vagina pt start ed on abt yesterday for abscess, she is requesting an rx for diflucan Treatment Notes Test Name Order Date PAP REQUEST FOR SERVICE 2020-12-07 Referrals Referral Date Details 39 year old with uterine fib roid and worsening bleeding, she would like to discuss surgical options, please evaluate and manage as necessary, thank you, Yuval Novoa, [address] [place], [address], Next Appt Details 1 Year Reason:annual/mammo Follow Up:1 Yearannual/mammo Insurance Providers Payer Name Payer Address Payer Phone Insured Name Patient Relati onship to Insured Coverage Start Date Coverage End Date BCBS OF [facility] [id number] [facility] [id number] TIFFANY,DIANE DANG self
--- OUTSIDE RECORDS SUMMARY | 2021-02-28 06:10 | CCD ---
Author Author [facility] Organization [facility] Address Unknown Phone Unavailable Care Team Providers Care Full Time Paramedic Name Role Phone Gene, Meredith PA Unavailable Unavailable Gene, Meredith PA Unavailable Unavailable Gene, Meredith PA Unavailable Unavailable Gene, Meredith PA Unavailable Unavailable Gene, Meredith PA Unavailable Unavailable Gene, Meredith PA Unavailable Unavailable Gene, Meredith PA Unavailable Unavailable Gene, Meredith PA Unavailable Unavailable Gene, Meredith PA Unavailable Unavailable Gene, Meredith PA Unavailable Unavailable Gene, Meredith PA Unavailable Unavailable Gene, Meredith PA Unavailable Unavailable Gene, Meredith PA Unavailable Unavailable Gene, Meredith PA Unavailable Unavailable Gene, Meredith PA Unavailable Unavailable Gene, Meredith PA Unavailable Unavailable Gene, Meredith PA Unavailable Unavailable Gene, Meredith PA Unavailable Unavailable Gene, Meredith PA Unavailable Unavailable Gene, Meredith PA Unavailable Unavailable Gene, Mreedith PA Unavailable Unavailable Gene, Meredith PA Unavailable Unavailable Gene, Meredith PA Unavailable Unavailable Gene, Meredith PA Unavailable Unavailable Gene, Meredith PA Unavailable Unavailable Gene, Meredith PA Unavailable Unavailable Gene, Meredith PA Unavailable Unavailable Gene, Meredith PA Unavailable Unavailable Gene, Meredith PA Unavailable Unavailable Gene, Meredith PA Unavailable Unavailable Gene, Meredith PA Unavailable Unavailable Gene, Meredith PA Unavailable Unavailable Gene, Meredith PA Unavailable Unavailable Gene, Meredith PA Unavailable Unavailable Gene, Meredith PA Unavailable Unavailable Gene, Meredith PA Unavailable Unavailable Gene, Meredith PA Unavailable Unavailable Gene, Meredith PA Unavailable Unavailable Gene, Meredith PA Unavailable Unavailable Gene, Meredith PA Unavailable Unavailable Gene, Meredith PA Unavailable Unavailable Gene, Meredith PA Unavailable Unavailable Gene, Meredith PA Unavailable Unavailable Gene, Meredith PA Unavailable Unavailable Gene, Meredith PA Unavailable Unavailable Gene, Meredith PA Unavailable Unavailable Gene, Meredith PA Unavailable Unavailable Gene, Meredith PA Unavailable Unavailable Gene, Meredith PA Unavailable Unavailable Gene, Meredith PA Unavailable Unavailable Gene, Meredith PA Unavailable Unavailable Gene, Meredith PA Unavailable Unavailable Gene, Meredith PA Unavailable Unavailable Gene, Meredith PA Unavailable Unavailable Gene, Meredith PA Unavailable Unavailable Gene, Meredith PA Unavailable Unavailable Gene, Meredith PA Unavailable Unavailable Gene, Meredith PA Unavailable Unavailable Gene, Meredith PA Unavailable Unavailable Gene, Meredith PA Unavailable Unavailable Gene, Meredith PA Unavailable Unavailable Gene, Meredith PA Unavailable Unavailable Hipple, L Gwen STEAMTABLE WORKER Unavailable Unavailable Hipple, L Gwen STEAMTABLE WORKER Unavailable Unavailable Hipple, L Gwen STEAMTABLE WORKER Unavailable Unavailable Hipple, L Gwen STEAMTABLE WORKER Unavailable Unavailable Hipple, L Gwen STEAMTABLE WORKER Unavailable Unavailable Hipple, L Gwen STEAMTABLE WORKER Unavailable Unavailable Hipple, L Gwen STEAMTABLE WORKER Unavailable Unavailable Hipple, L Gwen STEAMTABLE WORKER Unavailable Unavailable Hipple, L Gwen STEAMTABLE WORKER Unavailable Unavailable Hipple, L Gwen STEAMTABLE WORKER Unavailable Unavailable Hipple, L Gwen STEAMTABLE WORKER Unavailable Unavailable Hipple, L Gwen STEAMTABLE WORKER Unavailable Unavailable Hipple, L Gwen STEAMTABLE WORKER Unavailable Unavailable Hipple, L Gwen STEAMTABLE WORKER Unavailable Unavailable Hipple, L Gwen STEAMTABLE WORKER Unavailable Unavailable Hipple, L Gwen STEAMTABLE WORKER Unavailable Unavailable Hipple, L Gwen STEAMTABLE WORKER Unavailable Unavailable Hipple, L Wgen STEAMTABLE WORKER Unavailable Unavailable Hipple, L Gwen STEAMTABLE WORKER Unavailable Unavailable Hipple, L Gwen STEAMTABLE WORKER Unavailable Unavailable Hipple, L Gwen STEAMTABLE WORKER Unavailable Unavailable Hipple, L Gwen STEAMTABLE WORKER Unavailable Unavailable Hipple, L Gwen STEAMTABLE WORKER Unavailable Unavailable Hipple, L Gwen STEAMTABLE WORKER Unavailable Unavailable Hipple, L Gwen STEAMTABLE WORKER Unavailable Unavailable Hipple, L Gwen STEAMTABLE WORKER Unavailable Unavailable Hipple, L Gwen STEAMTABLE WORKER Unavailable Unavailable Hipple, L Gwen STEAMTABLE WORKER Unavailable Unavailable Hipple, L Gwen STEAMTABLE WORKER Unavailable Unavailable Hipple, L Gwen STEAMTABLE WORKER Unavailable Unavailable Hipple, L Gwen STEAMTABLE WORKER Unavailable Unavailable Hipple, L Gwen STEAMTABLE WORKER Unavailable Unavailable Hipple, L Gwen STEAMTABLE WORKER Unavailable Unavailable Hipple, L Gwen STEAMTABLE WORKER Unavailable Unavailable Hipple, L Gwen STEAMTABLE WORKER Unavailable Unavailable Hipple, L Gwen STEAMTABLE WORKER Unavailable Unavailable Hipple, L Gwen STEAMTABLE WORKER Unavailable Unavailable Hipple, L Gwen STEAMTABLE WORKER Unavailable Unavailable Hipple, L Gwen STEAMTABLE WORKER Unavailable Unavailable Hipple, L Gwen STEAMTABLE WORKER Unavailable Unavailable Hipple, L Gwen STEAMTABLE WORKER Unavailable Unavailable Hipple, L Gwen STEAMTABLE WORKER Unavailable Unavailable Hipple, L Gwen STEAMTABLE WORKER Unavailable Unavailable Hipple, L Gwen STEAMTABLE WORKER Unavailable Unavailable Hipple, L Gwen STEAMTABLE WORKER Unavailable Unavailable Hipple, L Gwen STEAMTABLE WORKER Unavailable Unavailable Hartsel, J Roxy STEAMTABLE WORKER Unavailable Unavailable Hartsel, J Roxy STEAMTABLE WORKER Unavailable Unavailable Hartsel, J Roxy STEAMTABLE WORKER Unavailable Unavailable Hartsel, J Roxy STEAMTABLE WORKER Unavailable Unavailable Hartsel, J Roxy STEAMTABLE WORKER Unavailable Unavailable Hartsel, J Roxy STEAMTABLE WORKER Unavailable Unavailable Hartsel, J Roxy STEAMTABLE WORKER Unavailable Unavailable Hartsel, J Roxy STEAMTABLE WORKER Unavailable Unavailable Pierce, Aron PA Unavailable Unavailable Pierce, Aron PA Unavailable Unavailable Pierce, Aron PA Unavailable Unavailable Pierce, Aron PA Unavailable Unavailable Pierce, Aron PA Unavailable Unavailable Pierce, Aron PA Unavailable Unavailable Pierce, Aron PA Unavailable Unavailable Pierce, Aron PA Unavailable Unavailable Pierce, Aron PA Unavailable Unavailable Pierce, Aron PA Unavailable Unavailable Pierce, Aron PA Unavailable Unavailable Pierce, Aron PA Unavailable Unavailable Pierce, Aron PA Unavailable Unavailable Pierce, Aron PA Unavailable Unavailable Pierce, Aron PA Unavailable Unavailable Pierce, Aron PA Unavailable Unavailable Pierce, Aron PA Unavailable Unavailable Pierce, Aron PA Unavailable Unavailable Pierce, Aron PA Unavailable Unavailable Pierce, Aron PA Unavailable Unavailable Pierce, Aron PA Unavailable Unavailable Pierce, Arno PA Unavailable Unavailable Pierce, Aron PA Unavailable Unavailable Pierce, Aron PA Unavailable Unavailable Pierce, Aron PA Unavailable Unavailable Pierce, Aron PA Unavailable Unavailable Pierce, Aron PA Unavailable Unavailable Pierce, Aron PA Unavailable Unavailable Pierce, Aron PA Unavailable Unavailable Pierce, Aron PA Unavailable Unavailable Pierce, Aron PA Unavailable Unavailable Pierce, Aron PA Unavailable Unavailable Pierce, Aron PA Unavailable Unavailable Pierce, Aron PA Unavailable Unavailable Pierce, Aron PA Unavailable Unavailable Pierce, Aron PA Unavailable Unavailable Pierce, Aron PA Unavailable Unavailable Pierce, Aron PA Unavailable Unavailable Pierce, Aron PA Unavailable Unavailable Pierce, Aron PA Unavailable Unavailable Pierce, Aron PA Unavailable Unavailable Pierce, Aron PA Unavailable Unavailable Pierce, Aron PA Unavailable Unavailable Pierce, Aron PA Unavailable Unavailable Re-disclosure Warning The records that you are about to access may contain information from federally-assisted alcohol or drug abuse programs. If such information is present, then the following federally mandated warning applies: This information has been disclosed to you from records protected by federal confidentiality rules (42 CFR part 2). The federal rules prohibit you from making any further disclosure of this information unless further disclosure is expressly permitted by the written consent of the person to whom it pertains or as otherwise permitted by 42 CFR part 2. A general authorization for the release of medical or other information is NOT sufficient for this purpose. The Federal rules restrict any use of the information to criminally investigate or prosecute any alcohol or drug abuse patient.The records that you are about to access may contain highly sensitive health information, the redisclosure of which is protected by Article 27-F of the [facility] Public Health law. If you continue you may have access to information: Regarding HIV / AIDS; Provided by facilities licensed or operated by the [facility] Office of Mental Health; or Provided by the [facility] Office for People With Developmental Disabilities. If such information is present, then the following [facility] mandated warning applies: This information has been disclosed to you from confidential records which are protected by state law. State law prohibits you from making any further disclosure of this information without the specific written consent of the person to whom it pertains, or as otherwise permitted by law. Any unauthorized further disclosure in violation of state law may result in a fine or prison sentence or both. A general authorization for the release of medical or other information is NOT sufficient authorization for further disc losure. Advance Directives Directive Description Psychiatric Clinician Fire Prevention Inspector Status Observation Descr iption Data Source(s) Ebola Screening Performed completed Ebol a Screening Performed [place] ([facility]) Note: Within the last month, have you tr aveled outside of the [place]? -NO Family History Family Member Name Family Member Gender Family Member Status Date o f Status Description Data Source(s) Unknown Unknown Problem MEDENT ([facility]) Unknown Unknown Problem MEDENT ([facility]) Encounters Encounter Providers Location Date Indications Data Source(s ) ( 15ESGYN) [facility] 15 min est formulator [address] [place] [address] 02/15/2021 12:00:00 AM EDT eCW1 ([facility]) Unknown [address] [facility] [address] 02/06/2021 12:00:00 AM EDT eCW1 ([facility]) Unknown [address] [facility] [address] 02/05/2021 12:00:00 AM EDT eCW1 ([facility]) ( 15ESGYN) WCenter 15 min est formulator [address] [place] [address] 01/16/2021 12:00:00 AM EDT eCW1 ([facility]) Unknown [address] [facility] [address] 12/19/2020 12:00:00 AM EDT eCW1 ([facility]) Outpatient [address] [facility] [address] 12/07/2020 12:00:00 AM EDT eCW1 ([facility]) Attender: Aron Craiger: Meredith Gonzalez 11/23/2020 08:21:08 PM EDT [facility] Attender: Aron Perkinserrer: Meredith Gonzalez 11/23/2020 08:21:08 PM EDT [facility] Attender: Aron King: Meredith Gonzalez 11/23/2020 08:21:08 PM EDT [facility] Attender: Aron Craiger: Meredith Gonzalez 11/23/2020 08:21:08 PM EDT [facility] Attender: Aron Perkinserrer: Meredith Gonzalez 11/23/2020 08:21:08 PM EDT [facility] Referrer: Meredith DIXON 08/17/2020 08:21:0 5 PM EDT [facility] Referrer: Meredith DIXON 08/17/2020 08:21:0 5 PM EDT [facility] Referrer: Meredith DIXON 08/17/2020 08:21:0 5 PM EDT [facility] Referrer: Meredith DIXON 08/17/2020 08:21:0 5 PM EDT [facility] Outpatient Referrer: Aron DIXON 08/17/2020 10:59:39 AM EDT - 09/07/2020 12:00:00 AM EDT [facility] [place] [address] [facility] [address] 06/09/2020 12:00:00 AM EST eC ([facility]) Referrer: Meredith DIXON 05/27/2020 08:21:0 2 PM EST [facility] <td ID="encounterTypeDescriptionID0">COV ID [id number] IMM</td><td>Gwen Garg NP</td><td>[facility]</td><td>05/26/2020</td><td>8:29AM</td><td>8:39AM</td><td></td>Outpatient Attender: Gwen Garg NP [facility] 05/26/2020 08:29:00 AM EST - 05/26/2020 08:39:43 AM EST [place] ([facility]) Referrer: Meredith DIXON 05/24/2020 08:21:0 2 PM EST [facility] Outpatient<td ID="encounterTypeDescripti onID1">COVID 19 IMM</td><td>Roxy Pedroza NP</td><td>[facility]</td><td>04/28/2020</td><td>8:33AM</td><td>9:00AM</td><td></td> Attender: Roxy Pedroza NP [facility] 04/28/2020 08:33:00 AM EST - 04/28/2020 09:00:22 AM EST [place] ([facility]) [place] [address] [facility] [address] 04/26/2020 12:00:00 AM EST eCW1 ([facility]) [place] [address] [facility] [address] 04/11/2020 12:00:00 AM EST eCW1 ([facility]) [place] [address] [facility] [address] 04/11/2020 12:00:00 AM EST eCW1 ([facility]) [place] [address] [facility] [address] 04/05/2020 12:00:00 AM EST eCW1 ([facility]) [place] [address] [facility] [address] 03/21/2020 12:00:00 AM EST eCW1 ([facility]) [place] [address] [facility] [address] 02/29/2020 12:00:00 AM EST eCW1 ([facility]) [place] [address] [facility] [address] 02/25/2020 12:00:00 AM EST eCW1 ([facility]) [place] [address] [facility] [address] 02/22/2020 12:00:00 AM EST eCW1 ([facility]) [place] [address] [facility] [address] 01/24/2020 12:00:00 AM EDT eCW1 ([facility]) [place] [address] [facility] [address] 01/21/2020 12:00:00 AM EDT eCW1 ([facility]) Immunizations Vaccine Date Status Description Data Source(s) Moderna COVID-19 05/26/2020 08:37:00 AM EST completed <td ID="[id number]-GL8">Moderna COVID-19</td><td ID="ImmunizationDose-1">2</td><td>05/26/2020</td><td ID="Jtpkamuoxpkbw-JyozdPtvn-RI6">Left Deltoid</td><td></td><td ID="Gmbvzufjsomsv-Tqvldw-MM5">Complete (Administered)</td><td>[facility]</td><td ID="Dnrkvafxnekjq-Bwsmz-Sfau-Comment-ID1"></td> [place] ([facility]) COVID-19 VACCINE a 05/26/2020 12:00:00 AM EST completed [facility] Vaccine Series Complete: YESThis Data wa s Submitted to [facility] Via [employer]. Moderna COVID-19 04/28/2020 08:45:00 AM EST completed <td ID="Xmoomptauksgg-Qqttjpfmsud-DM4">Moderna COVID-19</td><td ID="ImmunizationDose-0">1</td><td>04/28/2020</td><td ID="Awbkuzjuhvhct-QjpxcZyfe-YE0">Left Deltoid</td><td></td><td ID="Jfwmmfysgxuey-Tjholj-JE1">Complete (Administered)</td><td>[facility]</td><td ID="Hcucbykzanxpo-Nzkse-Uzjc-Comment-ID0"></td> [place] ([facility]) COVID-19 VACCINE a 04/28/2020 12:00:00 AM EST completed [facility] Vaccine Series Complete: NOThis Data was Submitted to [facility] [employer]. influenza, recombinant, quadrIvalent,injectable, prese rvative free 02/22/2020 03:47:00 PM EST completed eCW1 ([facility]) influenza, recombinant, quadrIvalent,injectable, prese rvative free 02/22/2020 03:47:00 PM EST completed eCW1 ([facility]) influenza, recombinant, quadrIvalent,injectable, prese rvative free 02/22/2020 03:47:00 PM EST completed eCW1 ([facility]) influenza, recombinant, quadrIvalent,injectable, prese rvative free 02/22/2020 03:47:00 PM EST completed eCW1 ([facility]) influenza, recombinant, quadrIvalent,injectable, prese rvative free 02/22/2020 03:47:00 PM EST completed eCW1 ([facility]) influenza, recombinant, quadrIvalent,injectable, prese rvative free 02/22/2020 03:47:00 PM EST completed eCW1 ([facility]) influenza, recombinant, quadrIvalent,injectable, prese rvative free 02/22/2020 03:47:00 PM EST completed eCW1 ([facility]) influenza, recombinant, quadrIvalent,injectable, prese rvative free 02/22/2020 03:47:00 PM EST completed eCW1 ([facility]) influenza, recombinant, quadrIvalent,injectable, prese rvative free 02/22/2020 03:47:00 PM EST completed eCW1 ([facility]) influenza, recombinant, quadrIvalent,injectable, prese rvative free 02/22/2020 03:47:00 PM EST completed eCW1 ([facility]) influenza, recombinant, quadrIvalent,injectable, prese rvative free 02/22/2020 03:47:00 PM EST completed eCW1 ([facility]) influenza, recombinant, quadrIvalent,injectable, prese rvative free 02/22/2020 03:47:00 PM EST completed eCW1 ([facility]) influenza, recombinant, quadrIvalent,injectable, prese rvative free 02/22/2020 03:47:00 PM EST completed eCW1 ([facility]) influenza, recombinant, quadrIvalent,injectable, prese rvative free 02/22/2020 03:47:00 PM EST completed eCW1 ([facility]) influenza, recombinant, quadrIvalent,injectable, prese rvative free 02/22/2020 03:47:00 PM EST completed eCW1 ([facility]) influenza, recombinant, quadrIvalent,injectable, prese rvative free 02/22/2020 03:47:00 PM EST completed eCW1 ([facility]) Medications Medication Brand Name Start Date Product Form Dose Route Admi nistrative Instructions Pharmacy Instructions Status Indications Reaction Description Data Source(s) Sulfamethoxazole 800 MG / Trimethoprim 1 60 MG Oral Tablet Sulfamethoxazole- Trimethoprim 800-160 MG Sulfamethoxazole-Trimethoprim 800-160 MG 12/07/2020 12:00:00 AM EDT 1.0 {tablet} active Sulfamethoxazole-Trimethoprim 800-160 MG eCW1 ([facility]) Sulfamethoxazole 800 MG / Trimethoprim 1 60 MG Oral Tablet Sulfamethoxazole- Trimethoprim 800-160 MG Sulfamethoxazole-Trimethoprim 800-160 MG 12/07/2020 12:00:00 AM EDT 1.0 {tablet} active Sulfamethoxazole-Trimethoprim 800-160 MG eCW1 ([facility]) Famotidine 10 MG Oral Tablet Famotidine 10 MG 12/07/2020 12:00:00 A M EDT 1.0 {tablet_as_needed} active Famotidine 10 MG eCW1 ([facility]) Famotidine 40 MG Oral Tablet Famotidine 40 MG 12/07/2020 12:00:00 A M EDT 1.0 {tablet_as_needed} active Famotidine 40 MG eCW1 ([facility]) Famotidine 10 MG Oral Tablet Famotidine 10 MG 12/07/2020 12:00:00 A M EDT 1.0 {tablet_as_needed} active Famotidine 10 MG eCW1 ([facility]) Famotidine 40 MG Oral Tablet Famotidine 40 MG 12/07/2020 12:00:00 A M EDT 1.0 {tablet_as_needed} active Famotidine 40 MG eCW1 ([facility]) Famotidine 40 MG Oral Tablet Famotidine 40 MG 12/07/2020 12:00:00 A M EDT 1.0 {tablet_as_needed} active eCW1 ([facility]) Sulfamethoxazole 800 MG / Trimethoprim 1 60 MG Oral Tablet Sulfamethoxazole- Trimethoprim 800-160 MG Sulfamethoxazole-Trimethoprim 800-160 MG 12/07/2020 12:00:00 AM EDT 1.0 {tablet} active Sulfamethoxazole-Trimethoprim 800-160 MG eCW1 ([facility]) Famotidine 10 MG Oral Tablet Famotidine 10 MG 12/07/2020 12:00:00 A M EDT 1.0 {tablet_as_needed} active Famotidine 10 MG eCW1 ([facility]) Famotidine 40 MG Oral Tablet Famotidine 40 MG 12/07/2020 12:00:00 A M EDT 1.0 {tablet_as_needed} active Famotidine 40 MG eCW1 ([facility]) Fluconazole 150 MG Oral Tablet [Diflucan] Diflucan 150 MG Di flucan 150 MG 06/09/2020 12:00:00 AM EST 1.0 {tablet} active Diflucan 150 MG eCW1 ([facility]) Fluconazole 150 MG Oral Tablet [Diflucan] Diflucan 150 MG Di flucan 150 MG 06/09/2020 12:00:00 AM EST 1.0 {tablet} active Diflucan 150 MG eCW1 ([facility]) Fluconazole 150 MG Oral Tablet [Diflucan] Diflucan 150 MG Di flucan 150 MG 06/09/2020 12:00:00 AM EST 1.0 {tablet} active Diflucan 150 MG eCW1 ([facility]) Fluconazole 150 MG Oral Tablet [Diflucan] Diflucan 150 MG Di flucan 150 MG 06/09/2020 12:00:00 AM EST 1.0 {tablet} active Diflucan 150 MG eCW1 ([facility]) Metoclopramide 10 MG Oral Tablet [Reglan] Reglan 10 MG Bhavana n 10 MG 03/21/2020 12:00:00 AM EST 1.0 {tablet} active Re glan 10 MG eCW1 ([facility]) Metoclopramide 10 MG Oral Tablet [Reglan] Reglan 10 MG Bhavana n 10 MG 03/21/2020 12:00:00 AM EST 1.0 {tablet} active Re glan 10 MG eCW1 ([facility]) Metoclopramide 10 MG Oral Tablet [Reglan] Reglan 10 MG Bhavana n 10 MG 03/21/2020 12:00:00 AM EST 1.0 {tablet} active Re glan 10 MG eCW1 ([facility]) Metoclopramide 10 MG Oral Tablet [Reglan] Reglan 10 MG Bhavana n 10 MG 03/21/2020 12:00:00 AM EST 1.0 {tablet} active Re glan 10 MG eCW1 ([facility]) Metoclopramide 10 MG Oral Tablet [Reglan] Reglan 10 MG Bhavana n 10 MG 03/21/2020 12:00:00 AM EST 1.0 {tablet} suspended Reglan 10 MG eCW1 ([facility]) Metoclopramide 10 MG Oral Tablet [Reglan] Reglan 10 MG Bhavana n 10 MG 03/21/2020 12:00:00 AM EST 1.0 {tablet} suspended Reglan 10 MG eCW1 ([facility]) Metoclopramide 10 MG Oral Tablet [Reglan] Reglan 10 MG Bhavana n 10 MG 03/21/2020 12:00:00 AM EST 1.0 {tablet} active Re glan 10 MG eCW1 ([facility]) Metoclopramide 10 MG Oral Tablet [Reglan] Reglan 10 MG Bhavana n 10 MG 03/21/2020 12:00:00 AM EST 1.0 {tablet} active Re glan 10 MG eCW1 ([facility]) Metoclopramide 10 MG Oral Tablet [Reglan] Reglan 10 MG Bhavana n 10 MG 03/21/2020 12:00:00 AM EST 1.0 {tablet} suspended Reglan 10 MG eCW1 ([facility]) Tranexamic Acid 650 MG Oral Tablet [Lysteda] Lysteda 650 MG Lysteda 650 MG 01/24/2020 12:00:00 AM EDT suspended Lysteda 650 MG eCW1 ([facility]) Tranexamic Acid 650 MG Oral Tablet [Lysteda] Lysteda 650 MG Lysteda 650 MG 01/24/2020 12:00:00 AM EDT active Lysteda 650 MG eCW1 ([facility]) Tranexamic Acid 650 MG Oral Tablet [Lysteda] Lysteda 650 MG Lysteda 650 MG 01/24/2020 12:00:00 AM EDT suspended Lysteda 650 MG eCW1 ([facility]) Tranexamic Acid 650 MG Oral Tablet [Lysteda] Lysteda 650 MG Lysteda 650 MG 01/24/2020 12:00:00 AM EDT suspended Lysteda 650 MG eCW1 ([facility]) Tranexamic Acid 650 MG Oral Tablet [Lysteda] Lysteda 650 MG Lysteda 650 MG 01/24/2020 12:00:00 AM EDT active Lysteda 650 MG eCW1 ([facility]) Tranexamic Acid 650 MG Oral Tablet [Lysteda] Lysteda 650 MG Lysteda 650 MG 01/24/2020 12:00:00 AM EDT active Lysteda 650 MG eCW1 ([facility]) Tranexamic Acid 650 MG Oral Tablet [Lysteda] Lysteda 650 MG Lysteda 650 MG 01/24/2020 12:00:00 AM EDT suspended Lysteda 650 MG eCW1 ([facility]) Tranexamic Acid 650 MG Oral Tablet [Lysteda] Lysteda 650 MG Lysteda 650 MG 01/24/2020 12:00:00 AM EDT suspended Lysteda 650 MG eCW1 ([facility]) Tranexamic Acid 650 MG Oral Tablet [Lysteda] Lysteda 650 MG Lysteda 650 MG 01/24/2020 12:00:00 AM EDT active Lysteda 650 MG eCW1 ([facility]) Tranexamic Acid 650 MG Oral Tablet [Lysteda] Lysteda 650 MG Lysteda 650 MG 01/24/2020 12:00:00 AM EDT suspended Lysteda 650 MG eCW1 ([facility]) Tranexamic Acid 650 MG Oral Tablet [Lysteda] Lysteda 650 MG Lysteda 650 MG 01/24/2020 12:00:00 AM EDT suspended Lysteda 650 MG eCW1 ([facility]) Tranexamic Acid 650 MG Oral Tablet [Lysteda] Lysteda 650 MG Lysteda 650 MG 01/24/2020 12:00:00 AM EDT suspended Lysteda 650 MG eCW1 ([facility]) Tranexamic Acid 650 MG Oral Tablet [Lysteda] Lysteda 650 MG Lysteda 650 MG 01/24/2020 12:00:00 AM EDT suspended Lysteda 650 MG eCW1 ([facility]) Insurance Providers Payer name Policy type / Coverage type Policy ID Covered alliance party ID Covered alliance party's relationship to de Policy De Plan Information LIFETIME BENEFIT GRACE O [id number] S [id number] [employer] [place] 306/[phone] [id number] SP [id number] [employer] [place] PPO 302/[id number] SP [id number] [facility] [id number] 0 [id number] BC[facility] of [facility] 0 [id number] Self 0 [facility] [id number] [employer] [id number] Self [id number] [employer] [id number] Self [id number] ANSI-Commercial [id number] [employer] [id number] Self [id number] [employer] BCBS Health Maintenance Organization (HMO) [id number] Self [id number] [employer] [id number]. [id number] Self [id number] [employer] [id number] Self [employer]IF[employer]IME [employer] [id number] SP [id number] Lifetime [employer] Commercial [id number] Self SELF PAY [id number] SP [id number] [place]/307 [id number] HU2 [id number] [place] 306/806 [id number] HU2 [id number] [place]/307 [id number] SP [id number] [place] [place] 306/806 [id number] SP [id number] [place]/307 [id number] SP [id number] [place] 306/806 [id number] SP [id number] [employer] BCBS B [id number] S [id number] [employer] [id number] Self [id number] Problems, Conditions, and Diagnoses Code Display Name Description Problem Type Effective Dates Data Source(s) N93.9 27160524390369 Abnormal uterine bleeding (AUB) Problem 12/07/2020 12:00:00 AM EDT eCW1 ([facility]) K76.9 [id number] Lesion of liver Problem 05/03/2020 12:00:00 AM EST eCW1 ([facility]) Z82.49 [id number] Family history of heart disease Problem 02/22/2020 12:00:00 AM EST eCW1 ([facility]) N92.0 [id number] Menorrhagia with regular cycle Problem 01/21/2020 12:00:00 AM EDT eCW1 ([facility]) Surgeries/Procedures Procedure Description Date Indications Data Source(s) Immunization Administration (includes Percutaneous, In bank and savings securities trader Immunization Administration (includes Percutaneous, Intrader 05/26/2020 12:00:00 AM EST ADIELNE ([facility]) Moderna COVID-19 Vaccine Moderna COVID-19 Vaccine 05/26/2020 12:00: 00 AM EST [facility] Moderna COVID-19 Vaccine Moderna COVID-19 Vaccine 04/28/2020 12:00: 00 AM EST ADILENE ([facility]) Moderna COVID19 Vaccine Administration First Dose Mode rna COVID19 Vaccine Administration First Dose 04/28/2020 12:00:00 AM EST GREENWA Y ([facility]) Immunization: Flublok Quadrivalent (18 years & older) 0.5mL IM (Influenza) 02/22/2020 12:00:00 AM EST eCW1 ([facility]) Results ID Date Data Source [facility] DIGITAL / ZAFAR BILATERAL MAMMO SCREENING (Ultraso und if indicated) 12/07/2020 12:00:00 AM EDT eCW1 ([facility]) Name Value Range Interpretation Code Description Data Sherry rce(s) Supporting Document(s) [facility] DIGITAL / ZAFAR BILAT ERAL MAMMO SCREENING (Ultrasound if indicated) [facility] ([facility]) ID Date Data Source [id number] 11/23/2020 10:15:00 AM EDT [facility] Name Value Range Interpretation Code Description Data Sherry rce(s) Supporting Document(s) Follow Up [facility] SGNKLb5bLgJTDmHlPKUxLvpHATwfGDmoOBMnK8G1JUwlJx9YAVxjlmEzTJNgTx6+SHRnST7rab4sDMDc gMy [file] 8490jQ10GSBLjJ+MARIA D+Jq0v4UDh6+NReorAFGlmpwvZlSB2efW6ZHneml44hLL4eVCa/iPIR5+UK55mk U6y36Jhu/3Yy84Z8Syv41Upnm1A265rRzWFj36kwBq [file] qaylS2YaJjB57E14zflFtDy6pB3W5apqH++zZaj [file] gls+Y5FhuUPtWpc+pug machine operator++o410oZgqsliIN0uSA5tHJ [file] beveler/8Ed0SbzM2cIZEvCAU5WASwiW4ptHpN+9t4VxRpY zy1Jzq4kQ20cQ6TlUwmYzXNZMY+IodymTx23+lptIw3IGnzsB+l1iHZqVQ6/elc/s4GC+k6M+kC6/breast worker [file] Upper sorbian+sGda6Wfp/tI9vm9CVdsmLt2w69GmZ5H8jWiJVMixoMDVw0ddCdvxnQhduCSLjQWiqTssTzhV/+myQ [file] yPPasHNHz+5UgrdNOB0Y6xxFSZcGaD6v6+QbYv/hide and skin classer [file] od5UTqK1LJX8pCEnUi3SNlkqJmC7VMvoVINOHb== ID Date Data Source [id number] 09/07/2020 08:42:00 AM EDT [facility] L BOWEL ONLYCLINICAL HISTORY: Abdominal pain.COMPARISON: Pelvic ultrasound 11/18/2019, gallbladder ultrasound 02/25/2020, CT scan abdomen and pelvis without and with intravenous contrast 04/12/2020.TECHNIQUE: The small bowel was examined by fluoroscopic review, spot radiography and overhead images.Fluoroscopic time: 1 minutes 38 secondsFluoroscopic images:7Overhead images:3FINDINGS: Supervisor Carbon Paper Coating view of the abdomen is within normal limits.The small bowel is studied by serial images, fluoroscopic review and spot imaging. Transit time to the colon was normal, with the small bowel loops and colon identified at 60 minutes. The visualized jejunal and ileal mucosal folds appeared normal. The terminal ileum is well seen and appeared normal.. No stricture or mass is seen.IMPRESSION: Negative small bowel exam.Dictated by: DILLON HOWE M.D. on 09/07/2020lectronically Signed by: DILLON HOWE M.D. on 09/07/2020 01:18 PMTranscribed by: francis on 09/07/2020 01:18 PMCDS G code: ,CDS Modifier: ,cc: Name Value Range Interpretation Code Description Data Sherry rce(s) Supporting Document(s) ID Date Data Source [id number] 08/17/2020 10:30:00 AM EDT [facility] Name Value Range Interpretation Code Description Data Sherry rce(s) Supporting Document(s) Follow Up [facility] EEWSXc4yOoOGRhFbDPTaLioZSHzoFYbsFEZxJ7K1WPyaVb0OTNiekgElZPQaGa5+KUZfRF8xcg8vPLYb gMy [file] eLq8//432y1TcwICrKjyyS+17KX4sTP9wtMTNsF [file] blast furnace keeper/J6z3Deh77/XjuMbiUWJiuqBzYrpQ9tCAtZ3lf7kWIe/cu589o059eVNotwsiwqkx4foGlm38ot55 [file] +7+ed65gXYuKA9mJRLF5ZygI/Fruit I Farmworker/FEeXVDQdGVo/W7ZKb+z3/5IOvmE48/lQ7g7AtHsi/qZ29dl2ofp [file] JhSVPn+xqkHZhD7wgfMwFaeKt4Y8sOUaY/0BwEqfBqciR++9TCSURnZ9BBpsOb6SbQ59iatUJ7sux+Human Resource Intern zXBmLeyNKcjz+i2KqmPMT3Thes0GKTpJs2dRFjkUgerya21NkgAHayiidjkm1VeXYbDSjxBmqisOIpHH 6aljxJpj8Xz0xFJlTo1ItjZvV77XgtUVqDXUY/ANg+ PmaDlRM55oi0BZADx32oHEyMFTFTYN8ZXpDtBgwgKHrnF+4fBfcUC0a7/xIqrd3EKHDQm1ixUtMOYAgz xpsADpppwo3GUHjTVX1qOkp/3K/5OVZJRInhgLpSrBVeIH4BbQW4iFvUYjVgTImTp/T4CsFkENdjV+if Nharc7TmeSA/2NMuqqtQuE9r0RGnswA38HliqLc5HL Iqfp+Y7cEdDxauEaZC1YxsGBucJMrvYsD0CkKZM01mF5+Dv5nfImT29ZIEQf3NuY0ojOloHTXGUkvrbk M2mgagEn0LbJkCBeUFm3/KHrz+BNitehrGDmWbSd0aEkqv4Oi4x5/kye7udEkBkK6bPZM724/V10ou8g ZAQbMZ5KnZVb1Te8yaAqKApBcCqiK6Ji4ZldtUmPa/ yP63vAJgQZ1fOJrLLWxE4pSx+ew3+B3VitpvzBxc3adhclHtowVn7jWBPrhvF7OgoUNKGF8le+qU3hmL WmjeizfYLEnPI59KQvV61CufreB8Ny/vYL1suyyByQuJu90t3d2p2DQ4TQu4XgsdiqBDcpsohfku7eKN eCa3fE0bZ8Prg5j0jpnFlksJAcXmmAlizTgyfjITrS tE+QxMIrY2Q0xlU5dy9y5PUr6+qZKv1AJkP2xV305RrXF5eDa7xKXchQ+4OYReMz5YUNUbEHap6nHXo6 AFiUy7ZTpUmsA7/NhtOdZD4PZF6xwaIiQkbA1/gI4o5gSXGalMePN/3VRK5F2VWl4eEdqj1hPkwt32da 4zjWYFx19ismaGMZ5E73GeXxGldKOGxLnPnhVsmvew sr3fJkJSfwIPYCO6BpLjPrWQsA7eL7lxdc9PdcX2QRIObG19iOhLoXpdeip46Eeb6pBiIF5LLCM//director of broadcast [file] eyeT2ctecopHhc2FN1KSlcfpzywAp2XXkVvmefZ8oE gl3w/R1cH3QZ64IKaV4akkkq2cfRX6CcxGIweabmMWYPMD+9YA1Jw404Ac6OnNRurmx3ReMf7cyT/MKd cAZTwl1V7zSrI610KAvXf0Y1yrItMaSgTqnb+8G1EiTfbeIowhOHNRIhwtrFewAap4zUO0njCIG2y8UQ uvAMuI9MbvfUzq43OaZcKKnxRE1W5Y5TCgArOOMpS9 D2DZg9MdNTtRAAUAz3GGObYK5MdgISNeTwJijlGHAYkP90tTKUp+cCOwiqw4UGv4Ie2k1CNou9Q463go GksUeDnzBvcsjmBTAjK7/gWmqL41tDJeMdXf3SOLUGLemFde+CqfvRVVnDrn2g4gLhgM4Gke1qgFaXIb 99pMzFP+/OKjGZfhXO089kKMdiJPkIb0ylx6uhG/Upper Sorbian [file] 4eQp8yfzCiP3Eq+qMy+Ah+CjpxwOHcCkVrZWen [file] Whitney+uQah8sMtG/K2UsZEVXE4VnH7PHPumtLPnX3BtU mF5+V4976CrKoGd1kqAlPN9l8eEZrUuZwP7GAAxEESmyfnNQzHv9aCfM5/3wuWHULgBz98HuGndcaRR+ Hw84l0zvMvBx04WdHN96/O8NJX8smSP43peZQetxovrKwcEx1JMmtehksKxNLi/3fExUsXRMvKlalROp nKfW3K7snCGDSCQqv6FCu5Fi1qZ2JL8Rc0B6MLAHlA jY5WoINaWDuqim3d8npWUX7XahCG/TyQKV859ry66/tK7vKUncjK65Grn91GBAwpKHpxBp/JEgIx+Charles 2c3FYXhxzgvxxDfWxfRUrfCq2AQdrrP2LmQo0VfhL6+3J5fvgRkTCnmQuDGy03kI9H2HqRMr6z+oaV/O g5ESaClF1EYAfSEsQwSdfV/GqqSQZ0zTOL8lSSrHu6 VJTLBeDqZOl/IBy6B7LP1BQoMZYhwpzDckRwKpTXyJfxCFcDC5vqU4gjOANzLBCtUrwaJaF0QzFRlr5A sigxCW1EUMduUHsu25ZXXdCHdJROp/srurfUQmBtcONUnSBCAyhL3CQ7Xm0zx+LEGAL ADMINISTRATIVE ASSISTANT+Kuxw7L0ch67OvA [file] ZScr4tk4kk45PtutEdLAUUP4Geg4uLZmBACrwESE9BD09P41eXb/Psychiatric Orderly+ArESUIc16xnapkhMjkVnTIUkY [file] worker [file] nursing home/hAUWeOYxCiw/8BM6b20GKCYZ7WArfUw//NIAFu h49BP/EOT+50D/nw09URBYpTMacUJQMTAlB2nlqISaynxY0dWzd+2VNUBfCsHKAu4qXCERKCWJ7ZzLte nuw7omKaX5e0mBLKdV3eIZKYAQd8VYTRL6zwbd8KQ5EBBfNykcwx1eIfWfVacNi7vr4mcG0/ABGKRTA/ wpILZV72CaloZmnXWx4buKknGMXwvwiP912GCCLvZK SG1PQQhLU+X8YuAUcxQljbFBSEh1ilxrDPgn4ivMlSC+XrCFrXvFT41l6nzMAZXlEBp/D6jxlgR0C1lL zpxNbC3XfteQLSrZ5YDgHJEgI1P1wVoCqT+Ma0AduUB7iDz5tjZPCtsgni3JpndAc5GL+S17ha0+o0YD eZsGINPBambS4gRAYxA22s2u1l+Y7lpBP4bMmDzD4c TBglnx1XSTwGaK5x/ZO+A/B/n/b8TA326zYW2r6KzQERP30G6wGyrUgdCmgawyvT69kt/QjamhasuumQ 9GX3A446//758pM65ac3FtvyXma6hguhocZrAfojs+yWEAz0ori0MhJACDFRcu8P31/6351Mqt+Z++fu Uqn572flDE/o8b05Jthdpw34IxiQ0drKzdoQPVN3ad xBaJuMQNltGDWRCPOzj09bQjjJwocETf3vKlF2qHxb4zY580tLzpvZAUKXbfZtDTi3Qy+7WJOF8p+MlY IAKfyWw3xPTYYvhxaB5dlBCgIIw+L1eyMi+oXuVd9F3JHtsAkfpl3LZUPuPlrDvYvb2Pn8mjFga2LGAl Nando+pz9LWiEO+mbEpC4mgd+R1H0guzq639ROpCYc5k [file] +Upper Sorbian/G7GMhgRebBenewCRMu/nftAgXkDXwYIvGpxMcaEcz2BgfGXYdeEvCG79gEAXfGS3BhC0ZFSAnB9B [file] n5AQXDaIKMJSCp38e6pxzrTcNvwmHOyKZIjH1ZgrwZ/nH+transfer knitter+YxYs4N48PqY/XaZ58YjQWmYE/ibaXU [file] 9G ID Date Data Source [id number] 05/24/2020 09:15:00 AM EST [facility] Name Value Range Interpretation Code Description Data Sherry rce(s) Supporting Document(s) EGD [facility] SPZMSx0sOuQMJcYyQXWyVdnOLGyiDXwtTRPtH4I6VRjdRp2FRAsbewNmGCSnKq8+AEAsGM5krk2gXBKi gMy [file] [facility]+t[facility]QAg4QzNXDITkc8zbKqa4ldp5c9S+JQ9kiZZCeB8uA68Mgpn+3zUVcKVkjXNTsW2GxTepY0gJ KFBsNmDSeHl+RjgJ9VYK9Bb51bKnO/n1s3Qhz4VmcdLkYZovR9KkKHMZeLVBuTBys4PmBNYsnzYVvLth p53baWoRXt2OlL+BQHe78Aq2G8DlWXtKgvsLhNQ3al YwrTD2s9CqEqyFJJ1e8ooN//bQLgRd6Qp2Bnm6SYvFDCSEEkNf/XQw04aegoHXw50RGLxSnQJMSMdNfP wp6U2CddzEGxoKNTxsZkeiHT9u3k5/12F3sd7yKlM6OHc1Yx2DSzajyVkua091EG1r/DmUfULRDpIyPj nidu3vMIUU0uyW6enjsZLfrugIfkIK/2zW6tOvhzpc JwX5ERQTw5hX5a8hzOIM6ygR5kPoyCy+V6DUHMQ0dvCS3HRZtaHdFG8jKyeo9RngzfEUXVE86wLy0+6c bWL583NGkHuka3ZkEZx6WZ3tr5+JF+OumaqM+JetXfa9Edytpo9VLuDsT1KOVZkQJzhkV5XGKtkKfwel OdwMTOSJynNdSv1chZfvyneTgmEaKZ9vrh6Tdvu8W6 nwK8zA45pwxNNcUE77CU8og1EMR98sa99BXdUHTQHzBJVBsYRwcJswLwD67Y8SstiPEbpPkEu9r05qv6 FbcqXoIAhz9FcsPuvmbzXiuPKEkeMD5lPdcpe9ItO8L3uTvCiSDcyrsJ32IgUO4KiJ+Dom/pDX+gjXI+ 5LpCfZu4acle3rL4eRpI9hKMSo0noNrOrF9/MWVoNc 0gjLFhm0jMCJS00L2serVj784zxyKpJsq74Cn3q8JhbIi5CST69HggfaPRTrEE9cpT49gvB+jynfX90t 7tnsKiOonf72ngyA86iFUZMDLAIM4QHh/DhCCRNiNs7gyo4zfVXWvrNyu3EHZjxLR0XnKWwOsfr7Arvk a6u/YRoVA3ylNCxZ2y+Oybka4CM11VbUbIGblx8kf4 YsNtVnqKzCFWk12IyCdsVsrtV2fvNYuCzxC9+h5DetHOwPlYYi7Uu+fmcvqpbeXWrWkL3sNZ+uGOfqDc zrQVOCNuW5pR3ua9G7WVooaYQB1ymM5nc3nMrMtW733c3gilp+ypMFVeYcl1flVvtih47CudOUKYhBgm QWtODPvzxuDCmiTUbQ/iiZxhItLYuMhIaJxOBiFkNC [file] sTb+Bfyn/w5/Nicole/L38xb+FBrA37Vmg/8ok3k4tqoZ/ xt/ukiz1nH5i595qRK+zBu8YtmbxbWDpRJglKocB/oizk8opscXXxlM/OebuuxG4Qf7Af22u5/Y/9y7G hqPu85vA6ipoeF/Z9uDOiL/DyvaGH5KPT/WNE+0poI5Xt9AB9w/Ul0Ibvh/2j8U5Vz7GSekRfRzHePao 3jS4MyzlTDHJ/qXTynGVzORDtvG7FOFT1xFdz5mFS5 5tb644eVY/J2HCzUOVrFV5u1bpLDqXCxPQ6curJNEwGmERL4N7bFR3binzQgBiV2A/2LW44USQ/rrhIb 1yoiQt+jgep3QIU24YroYeka/Q9S6QLxWoRhA3/SgOn0Vs+q2o01nm/25FvohHyfAZPYjbU8dd09NmzU 8dfyuyTE+c7bwiix2Ld+CtZSrT1Y5XuQt/xBX0BTcy 0t9UOhm/rFvAfyr+Q/6fRqpm1Qs8HLL/Usy/C/E/7dlw4rIIlZ/Upper Sorbian/efWk7vb/ODXPgLH/OMUGCYNE2w v08MJF+CYH7emBPG4OITB4w9rft/qbkt0Ym/s5H/T1QwJSiOLi/i/bHm2qGR/8ix6RpJ+7xU7GLtLiM4 7Nu5w8LaArw8sg5JK2hkY0/8jbfgdhQ/isY2IwpInS G+y+ymnH1dKLR+b1wR0skBfVFniZwxTjvbY1TUHHBtjj0iOcemUXX31cc+wXeQfgDqatoQb3yX/wOV/Q 0zcH3D4F2QBTdsE+WMpBqY0F0CbW2Gr/Rn/VeZE3N5dEhRElAb9P6LRW0zhmba3o3vJ3E/dHzl/SPQN/ /cHMp/SeLuW67mIU7SM/WT9X43G3i/1h5J1KS/BDX1 F0JYwKl67PoCOqB8or7i/Sj/bfaz8qBrfZ/D4u67MhmvVI+pIUW++WnFNZ34RNOXF7fCiYZIebnSxM/ tLOMJ8mA8SOkbYnA/ifE5O+d+6rj4e9WxB1oyrCV+C6G38sIKx+kick+dNiIEq1HaCpye1mlOnk4AeBr 6Ri3NoaO1hHB7axr2s7oflYlS3wfDWtzAZPbqfzDOX gF6Zzdv2WIOu24H25Y8CxpNtbkVetQTzDH+IqfEahN0QAfDemJGgixpY3X/aPu1z2qR+6kjQIulNqbjO ia78CDjd/Nulqe1nOsVSi7a+SXDccf4u4Ef7930le3O67Lqq5cOH3doVgHfmOkC7U6+vg/nc81KTHUHW 4mo2Zu8ROqLgYhtO92zG+DuCkQbkIkJ2WUgb+7ioZJ RA0oBGQ1JJ+joqtk23OJKYMnxkBdTpNrOk5OUQVi0ZCnzZaFFFdquW6P4JOopBA6bNgkHrGrlo5DXY61 fYCNedWI8wr9S5zBV2V+lGzAiagQqhVSqYiTjDUwSiWQLX4wfP3LVfjpqW6mcCm6olBI7hSYlXQqZNf8 Gk1o/GFLl8+VOASPTeYiQm4je/CUlZ+UT9MMtEhJ9B e4njwO5YtGG/zm4zfeXWshXiYPOuVtWT0V4nYKTio8nsOPRuIvAntg6MYXFMINFhunPp5CUHVj/oSg/o FOq1mg6nzaefVxEgXKuucBWIv8bf0qAaEj88fN22icy7CTkU3W76fdPR4ML01iUcv9N3AWqQtzqbL3B4 shoJdYPA2F+RN/vJpZL3ddxXX1Fz5qYXRSGaIH3ij3 +ZZVRVp7BWMtueLiLr8mkvSlo+egST4GVYkx8K1F9PyAKaVehQwqqXNckX27Zmy/h7+yHEG3NuIj1ot2 HpY+YTbC7Ywu181apbtNvmrJatc1xKPsvU1eXa0DuI1BqH14MDPERBl1aEP6ymPkpF0vEEcKo3oV+fhT i4kyy8szHmOUylaKB8qk5/mw2WleWTygwRDYBTdCcv Julien+C4nCk0Ge6iG0NXbPdx1I9D2X8kM/e8FAvrHVGxH1rGA31kwpdPSICWFNNphp7YBqXgFwb+4s7KnH [file] n9OaKIk++Mike/T3XxCvOGZYlDKkRMw6IC+QqlPYypZbxvV7tEVJZ7qiLlnNuk4uFJIuv+jDrgNP2/Bms u1LtrWLkESMspiNNWhgk9xHlDt+62P4FRsq7+LpVR3 vrCbO/VGRrWmwC7+UpUiUHVw0GwilqA/pYYPVofo9zx4SvNgHDnURUXiJlqgRNSyKwsWEpd7dksrv3TZ fto0XPmhux9or/Exr57QznDHsu/u8dWgH/PtiBhwOkIB0ol1kxoVpdSWbrJQILI4e7TKHYC3h7ewoIMB eFr//wJoGHhPFm09/yw/ZSSxjxUDVg4iCJJTqZo9m9 Dc9rRgMqGxyV910vTE9cYfstAyfSAEehj0ymOsqQyuKYJBniUjebxKnyGkr+5RIbfqDPVl+V6Y0hUULA 4YBNfv3qiZAXe4IYaY1bdvmm89cg1x35HMV6OoMCJuxd3XC+rBDpJpNo3KtE2Xbe/KiLAy23gsmpB89+ 36O9Mlqf6QwCAPN9blA4qFVXEC0ionwK+rSJ8Ux8mQ WmR38Dfln8kEFJuC7Olm1G/JQDgnsMt9OAQ2VsJw8I6/M8d5n7DFaHR0XYNFEFRds3jUWpFCVjZ6KSMC +YLu9ttv8/Avy6/EKojlVkZmILe4+7ClBZp2No5BJYZj/OVpH6YbGLVlk305+BSc5K4mvUjRlf8UBDDa F+gxAbzyldv8MP+zFd32q0DooUPWzsDqGrBRtsMmq2 DT/gdBu3BXyFOXoTKVcd9Nd7YOOUvELTpekuhvIdZZphmssW18lH3+HWO83PcOwr5p+slime plant operator+PUD49BZRN [file] YSKBMHFvaNsA96odjC90pjSWaNZWb/clay dry press mixer operator+8hFoIuY2 [file] SENIOR CARE+btoOqdhYDA9oRsvoYA1bL+6EV6l36eABTgeGAAViLLhWMnaaauehxzRaBE7PmjdJNE3Fte9epbYc [file] uGMOHhc5J/yThJx/Psychiatric Orderly+oypi45804K6M8Yss2/k3vZC [file] nbt/levine/6u7rPrih/o/Human Resource Intern+ZLa9DG4cFRazTMzYiTLMq+BIBiESoZkr0mfxtA9TDc8F9esZcQJtn/Oe8r5 [file] orbD4U94J15nex8Gq+fOGWusrmXlYilOSmyB3hDwKV5O2hWGrKDvUg/y1mgzemOX49w/mP8x/nP85/data entry [file] L+o/Ki/6qc91+Psychiatric Orderly/urroaQs3MjnCkYB//Vr/f/oV/x [file] J+NDsaisSROXL4lgVq78dyLPWWOkbHDECiOL3o Tp5FjOYtC/v/mxQvzpfiKskS3NJ/X3c8YWi+foAhVjKX5ZYe5jGWlGFuIpQy91jO/TiL52lBIDuWiwmT MQWDtD/lJ6iW1bhH3jn8ZQ6ppSV+UKfz/kTzjpkyg7QsO98KC0IewLd2zVbFtbOOqOJte5oQayv0z6xg 1pyI4wCRWninPDgk7XQLDcP/coeG4089zXoT1t2w7m 3lk8xFIX8aoqxsJqqhy0LcHNpZ6FAQXBal70YIGi8nTb8RZfLE/data entry+xzKMNlsTXkPR44qKKXfIhqkRqm [file] José Manuel+QwijhmfmMNeW8spguUJtTmtIVOM95PRY2UEnTp0v6kG9/axCJqOOWrJD4FPP+XHE3O3hNUs70jo3 [file] 8lrUmSZnPTg/nlLVXMxGm34uEgsHVENCYtAT/V/edge roller [file] Fm4Gq9l+barrel liner/Jt8tFMzQ5l7EyfaHCtI89PRhLYSsR45VK347T0tB3rPmRen63nd0O10ivptwU+hIoyKX [file] cgWzEgNCAxXT4+r9IyMJNkURcJZGEAIrWDQSKGYuGERLNFVNRVJZCA7MEVPPSDUcOAFWIS9ZYGOCIG3K DNSJPVQcPMQFUMllKSKTm9hdFIBIh07hFJFsYlKZC2 rjEktS3UPM6pi7BvOF9Am3OrdwK0baYrKEk7XFYsTFKODxAiHH3T ID Date Data Source [id number] 05/19/2020 08:30:00 AM [facility] Name Value Range Interpretation Code Description Data Sherry rce(s) Supporting Document(s) SARS coronavirus [address] [facility] This lab was ordered by [facility] and reported by [facility]. ID Date Data Source [id number] 05/18/2020 10:15:00 AM EST [facility] Name Value Range Interpretation Code Description Data Sherry rce(s) Supporting Document(s) First Visit [facility] FPFYQf0aQrBNIySnLWWeLvyDDUrpGFudGOKeX1O9UOvuEi2WGExqjhMcPOZsRz0+PMQxMU1rcs3yTUZc gMy [file] intern [file] O6AyPenfHR08lZPDFjbNlQ8nid+ryrPCB+iRhSRYh+gqd/X3t+HkgFtejtRgEKIQCQb8WsiAXrBR+Antique Furniture Reproducer [file] HOME SPECIALIST+PBCzj10G7MIbBimUfj0qV8lSfer5p+Ns7ZLM8P [file] Nw/ict sales assistant/b2o6A2gCPq5Wl3+V1CWrFhrLtUPf7nLD4xeuk0vP5iiKhv90uyi3rQLysR2ay/1tV9ZN4d18h [file] GXe6t90t81IorNQ6HtM8riefapyhq+Sak88yT40+Upper Sorbian [file] 1nb4dpu/acquisition advisor+06rEBOG1kFIufJ6s9+8BEyXGcOcOgg [file] 7Jg8N9w1z3zQ5mEnpr2M39P9nryqe3bmf9179qGDwS z6ZAQK8NG1xzBt+rdMR0zLGi1GML076YNFpBhHaLUqKbj4zVrAFdpM7I/aPhETuOENnAY3SX/W58B2Ff DBkiDQvfVgDrwxUrxG0zjnlpSWizN7BDxKfdvXeT9NoIN/PcZA7za/jdVonKvPjjif+ExCOvV4iH4ZJb H2UB2ynRnYjrBOm6ehSAp/3CsJ3cma3EsWSZ7Q8StO vRET1zsURZ1MhPmWtFD+HNlgorPDY/vxU2lh1xvoQrnhMxCDE6BT7UACA6xe15qLMKZ3irr2LWBjn2lO 6glpCTaLplcickZfBtNBNRHhjIkAZRMC7UujUca0mXEgwIUBgeIt8OVVj4okbrGOjdPb+GUAMoJ1YKtb 7ZKxt6arWD52sDyYyNjSzmW4b6VpZ0R1FH9oAUeQn6 yUafH1Pd+ZV2bzVPJb+n4VpNt8WkFIY0yWBNtczrzMNjF+hgKmwd5v07iwxbxO+ZhZ/rY7qmZUkKc1Hh QubieaTNv5eUID8na3G/dWM4qV7yDAcCsktzzSGIcBKGYrxujuAjhV6+gNkfKkvhSC+g7kpoXFPaO4z6 ndH3WdDI/rOWIAV10QDCynHE8cNjTCsP0vfzha40vn 0u6m9Pl9DtEvjgIPcwX05+5/U+fAP1xkAJljFWwIz4jT+9KU5GLqPQnLw5Dfqor4lqBpbYTKUxha5Oe/ i4B0sd9bKIf7+mCcuFNVHVCse6xG70DfBker3JB+3omBMizV/8Sb+HvLE5CVujayaEPUIYAM8i5KrPCU federal agent/VId6TePEzI/0naElAR6vQtfd+nAVyxFg/pa16IP [file] yfbMuw3GFeQVzVyUHqBCLkeDnhTmHpbgnlEzLg//STEAMTABLE WORKER [file] ED55mfpoF726kLcJY+XWOuDkmH20jML3VZf9vpFbrer+RFXWN1Ge3FTczK+NpRWl29Uw9fekkDPc+production material coordinator [file] 6Yz4IbBhL/Germán/1bxYyY6k03jiGk6tOZoL7Xrf8y+ [file] pSM5hK6ZhYYOE2mKXf36MPNLSdkz2kogcTmSIzK4F07BvgEGH65QrnD1Xs/Mónica+t0XnJPSqq4paLHUj2 [file] 9G ID Date Data Source [id number] 03/21/2020 04:32:00 PM EST [facility] Name Value Range Interpretation Code Description Data Sherry rce(s) Supporting Document(s) SARS-CoV-2 (COVID 19) [facility] This lab was ordered by [facility] a nd reported by [facility]. ID Date Data Source RESPIRATORY PANEL 03/21/2020 12:00:00 AM EST eCW1 ([facility]) Name Value Range Interpretation Code Description Data Sherry rce(s) Supporting Document(s) This respiratory PCR panel detects Influenza A H1, H3 and RESPIRATORY PANEL eCW1 ([facility]) ID Date Data Source CBC - Complete Blood Count 01/24/2020 12:00:00 AM EDT eCW1 ( [facility]) Name Value Range Interpretation Code Description Data Sherry rce(s) Supporting Document(s) 5.2 4.0-10.0 WHITE BLOOD COUNT eCW1 ([facility]) 12.5 12.0-15.5 HEMOGLOBIN eCW1 ([facility]) 3.96 4.00-5.40 RED BLOOD COUNT eCW1 ([facility]) 38.1 36.0-47.0 HEMATOCRIT eCW1 ([facility]) 32.8 32.0-36.5 MEAN CORPUSCULAR HGB CONC eCW1 ([facility]) 96.2 80.0-96.0 MEAN CORPUSCULAR VOLUME e CW1 ([facility]) 31.6 27.0-33.0 MEAN CORPUSCULAR HEMOGLOB IN eCW1 ([facility]) 253 150-450 PLATELET COUNT, AUTOMATED eCW1 ([facility]) 11.8 11.5-14.5 RED CELL DISTRIBUTION WID TH eCW1 ([facility]) Procedure Social History Code Duration Value Status Description Data Source(s ) Smoking 02/15/2021 12:00:00 AM EDT Never Smoker completed Never S moker eCW1 ([facility]) Smoking 01/29/2021 12:00:00 AM EDT Never Smoker completed Never S moker eCW1 ([facility]) Smoking 01/29/2021 12:00:00 AM EDT Never Smoker completed Never S moker eCW1 ([facility]) Smoking 01/16/2021 12:00:00 AM EDT Never Smoker completed Never S moker eCW1 ([facility]) Smoking 12/07/2020 12:00:00 AM EDT Never Smoker completed Never S moker eCW1 ([facility]) Smoking 12/07/2020 12:00:00 AM EDT Never Smoker completed Never S moker eCW1 ([facility]) Smoking 12/07/2020 12:00:00 AM EDT Never Smoker completed Never S moker eCW1 ([facility]) Smoking 04/11/2020 12:00:00 AM EST Never Smoker completed Never S moker eCW1 ([facility]) Smoking 04/11/2020 12:00:00 AM EST Never Smoker completed Never S moker eCW1 ([facility]) Smoking 04/11/2020 12:00:00 AM EST Never Smoker completed Never S moker eCW1 ([facility]) Smoking 04/11/2020 12:00:00 AM EST Never Smoker completed Never S moker eCW1 ([facility]) Smoking 04/11/2020 12:00:00 AM EST Never Smoker completed Never S moker eCW1 ([facility]) Smoking 03/21/2020 12:00:00 AM EST Never Smoker completed Never S moker eCW1 ([facility]) Smoking 02/22/2020 12:00:00 AM EST Never Smoker completed Never S moker eCW1 ([facility]) Smoking 02/22/2020 12:00:00 AM EST Never Smoker completed Never S moker eCW1 ([facility]) Smoking 02/22/2020 12:00:00 AM EST Never Smoker completed Never S moker eCW1 ([facility]) Vital Signs ID Date Data Source UNK Name Value Range Interpretation Code Description Data Source(s) Body mass index (BMI) [Ratio] 21.6 kg/m2 21.6 k g/m2 eCW1 ([facility]) Body weight 121 [lb_av] 121 [lb_av] eCW1 ([facility]) Systolic blood pressure 112 mm[Hg] 112 mm[Hg] e CW1 ([facility]) Body height 62.75 [in_i] 62.75 [in_i] eCW1 ([facility]) Diastolic blood pressure 66 mm[Hg] 66 mm[Hg] eCW1 ([facility]) Body weight 118.2 [lb_av] 118.2 [lb_av] eCW1 ([facility]) Body height 62.75 [in_i] 62.75 [in_i] eCW1 ([facility], [facility]) Diastolic blood pressure 68 mm[Hg] 68 mm[Hg] eCW1 ([facility]) Body mass index (BMI) [Ratio] 21.1 kg/m2 21.1 k g/m2 eCW1 ([facility]) Systolic blood pressure 116 mm[Hg] 116 mm[Hg] e CW1 ([facility]) Body weight 123 [lb_av] 123 [lb_av] eCW1 ([facility]) Body weight 55.79 kg 55.79 kg eCW1 ([facility]) Body height 62.75 [in_i] 62.75 [in_i] eCW1 ([facility], [facility]) Body mass index (BMI) [Ratio] 21.96 kg/m2 21.96 kg/m2 eCW1 ([facility]) Systolic blood pressure 124 mm[Hg] 124 mm[Hg] e CW1 ([facility]) Diastolic blood pressure 72 mm[Hg] 72 mm[Hg] eCW1 ([facility]) Systolic blood pressure 122 mm[Hg] 122 mm[Hg] e CW1 ([facility]) Diastolic blood pressure 76 mm[Hg] 76 mm[Hg] eCW1 ([facility]) Body weight 116.6 [lb_av] 116.6 [lb_av] eCW1 ([facility]) Body height 62.75 [in_i] 62.75 [in_i] eCW1 ([facility], [facility]) Body mass index (BMI) [Ratio] 20.82 kg/m2 20.82 kg/m2 eCW1 ([facility]) Heart rate 64 /min 64 /min eCW1 ([facility]) Respiratory rate 18 /min 18 /min eCW1 ([facility]) Body temperature 97.7 [degF] 97.7 [degF] eCW1 ( [facility]) Body weight 115.8 [lb_av] 115.8 [lb_av] eCW1 ([facility]) Body height 62.75 [in_i] 62.75 [in_i] eCW1 ([facility], [facility]) Body mass index (BMI) [Ratio] 20.67 kg/m2 20.67 kg/m2 eCW1 ([facility]) Heart rate 74 /min 74 /min eCW1 ([facility]) Respiratory rate 18 /min 18 /min eCW1 ([facility]) Body temperature 100.4 [degF] 100.4 [degF] eCW1 ([facility]) Systolic blood pressure 122 mm[Hg] 122 mm[Hg] e CW1 ([facility]) Diastolic blood pressure 78 mm[Hg] 78 mm[Hg] [facility] [facility] Body weight 116.2 [lb_av] 116.2 [lb_av] eCW1 ([facility]ly [facility], later [facility]) Body height 62.75 [in_i] 62.75 [in_i] eCW1 (Formerly [facility], [facility]) Body mass index (BMI) [Ratio] 20.75 kg/m2 20.75 kg/m2 eCW1 ([facility]) Heart rate 76 /min 76 /min eCW1 ([facility]) Respiratory rate 18 /min 18 /min eCW1 ([facility]) Body temperature 98.5 [degF] 98.5 [degF] eCW1 ( [facility]) Systolic blood pressure 106 mm[Hg] 106 mm[Hg] e CW1 ([facility]) Diastolic blood pressure 72 mm[Hg] 72 mm[Hg] eCW1 ([facility]) Patient Treatment Plan of Care Planned Activity Planned Date Details Description Data Source (s) Fluconazole 150 MG Oral Tablet [Diflucan] 06/09/2020 12:00:00 AM ES T eCW1 ([facility]) Fluconazole 150 MG Oral Tablet [Diflucan] 06/09/2020 12:00:00 AM ES T eCW1 ([facility]) Fluconazole 150 MG Oral Tablet [Diflucan] 06/09/2020 12:00:00 AM ES T eCW1 ([facility]) Fluconazole 150 MG Oral Tablet [Diflucan] 06/09/2020 12:00:00 AM ES T eCW1 ([facility]) Metoclopramide 10 MG Oral Tablet [Reglan] 03/21/2020 12:00:00 AM ES T eCW1 ([facility]) Tranexamic Acid 650 MG Oral Tablet [Lysteda] 01/24/2020 12:00:00 AM EDT eCW1 ([facility])
[2021-02-28] MEDS ORDERED: MIDAZOLAM INJ 2MG/2ML VIAL (J2250 PER 1MG) As Ordered ONE (06:47)
[2021-02-28] MEDS ORDERED: fentaNYL 250 MCG/5 ML INJECTION (J3010) As Ordered ONE (06:47)
[2021-02-28] MEDS ORDERED: propofoL 200 MG/20 ML VIAL As Ordered ONE (06:57)
[2021-02-28] MEDS ORDERED: LIDOCAINE 2% INJ 100 MG/5 ML SYRINGE As Ordered ONE (06:57)
[2021-02-28] MEDS ORDERED: ROCURONIUM BROMIDE 50 MG/5 ML VIAL As Ordered ONE (06:57)
[2021-02-28] MEDS ORDERED: ceFAZolin SOD 2 GM in IV 1 EA IV ONE (07:05)
[2021-02-28] MEDS ORDERED: BUPIVACAINE HCL 0.25% 30ML VIAL As Ordered ONE (07:09)
[2021-02-28 07:10] LABS: HEMATOCRIT 37.2 % (36.0-47.0); HEMOGLOBIN 12.4 g/dl (12.0-15.5); MEAN CORPUSCULAR HEMOGLOBIN 30.4 pg (27.0-33.0); MEAN CORPUSCULAR HGB CONC 33.3 g/dl (32.0-36.5); MEAN CORPUSCULAR VOLUME 91.2 fl (80.0-96.0); PLATELET COUNT, AUTOMATED 208 10^3/uL (150-450); RED BLOOD COUNT 4.08 10^6/uL (4.00-5.40); WHITE BLOOD COUNT 4.4 10^3/uL (4.0-10.0)
[2021-02-28] MEDS ORDERED: BUPIVACAINE HCL 0.25% 10ML VIAL As Ordered ONE (07:10)
[2021-02-28] MEDS ORDERED: dexameTHASONE 4 MG/ML 1ML VIAL (J1100 PER 1MG) As Ordered ONE (07:58)
[2021-02-28] MEDS ORDERED: SUGAMMADEX SODIUM 500 MG/5 ML VIAL (BRIDION) As Ordered ONE (07:58)
[2021-02-28] MEDS ORDERED: ONDANSETRON 4MG/2ML VIAL As Ordered ONE (07:58)
[2021-02-28] MEDS ORDERED: DOCUSATE SODIUM 100MG CAPSULE PO SCH (09:00)
--- NOTE | 2021-02-28 09:30 | ROOPDOC ---
[facility] Report Of Operation Report of Operation DATE OF PROCEDURE: 02/28/21 OPERATIVE REPORT: Preoperative diagnosis: Menorrhagia. Postoperative diagnosis: Same. Procedure: Robotic-assisted laparoscopic hysterectomy, bilateral salpingo- oophorectomy, cystoscopy. Surgeon: Yuval Hammer M.D. EBL: 100 mL's. Urine output: 200 mL's. Operative summary: Patient was taken to the operating room where general endotracheal anesthesia was induced. She was prepped and draped in sterile fashion in the dorsal lithotomy position. A Edgar Catheter was placed. A V care uterine manipulator was placed. A Periumbilical incision was made with a scalpel. . A Veress needle was placed through this incision. Intra-abdominal location of Veress needle was assessed with saline filled syringe. A pneumoperitoneum was created. The Veress needle was removed. An 8 mm trocar using the Webflowiport was inserted through this incision. Three 8 mm suprapubic ports were placed under direct visualization The patient was placed in Trendelenburg position. The da Dalton surgical robot was docked to the ports. Using the fenestrated bipolar instrument and vessel sealer., the IP ligaments and broad ligaments were coagulated and incised. The round ligaments were coagulated and incised. The anterior and posterior leaves of the broad ligament were . Bladder flap was created. The uterine vessels were coagulated and incised using monopolar Endo Jeri. A colpotomy was created in the upper vagina at the level of the V care Cup. The specimen including the uterus, cervix, fallopian tubes and ovaries was removed through the vagina. The vaginal cuff was closed with #1 V lock suture in running fashion. Cystoscopy was performed using a 70 cystoscope. Bilateral ureteral jets were identified. No evidence of injury to the bladder. The cystoscope was removed. All instruments removed. The skin was closed with 4-0 Monocryl subcuticular sutures. YUVAL HAMMER MD Feb 28, 2021 09:30
[2021-02-28] MEDS ORDERED: ONDANSETRON 4MG/2ML VIAL IV PRN ×2 (09:40→09:45)
[2021-02-28] MEDS ORDERED: oxyCODONE 5MG TAB PO PRN (09:40)
[2021-02-28] MEDS ORDERED: fentaNYL 100 MCG/2 ML INJECTION (J3010) IV PRN (09:40)
[2021-02-28] MEDS ORDERED: LR 1,000 ML IV SCH ×2 (09:40)
[2021-02-28] MEDS ORDERED: PERCOCET 5MG/325MG TAB PO PRN (09:40)
[2021-02-28] MEDS ORDERED: MEPERIDINE INJ 25 MG/ML VIAL (J2175) IV PRN (09:40)
[2021-02-28] MEDS ORDERED: HYDROMORPHONE HCL 0.5 MG/ 0.5 ML SYRINGE (J1170 PER 1) IV PRN (09:40)
[2021-02-28] MEDS ORDERED: KETOROLAC 30 MG/ML 1ML VIAL IV PRN (09:40)
[2021-02-28] MEDS ORDERED: ACETAMINOPHEN *IV* 1,000 MG IV ONE ×2 (10:00)
[2021-02-28] MEDS ORDERED: HYDROmorphone HCL 2 MG/ML 1ML VIAL As Ordered ONE (10:42)
[2021-02-28 11:35] VITALS: BP 126/68
[2021-02-28] MEDS ORDERED: OXYC1TAB23 PO (12:12)
== END 2021-02-28 11:55 | disposition home or self-care (01) ==
LOC: M SDC 06:04
PROVIDERS: ATTEND Specialist
DX: N92.0 Excessive and frequent menstruation with regular cycle (principal); N88.8 Other specified noninflammatory disorders of cervix uteri; D25.9 Leiomyoma of uterus, unspecified; N83.11 Corpus luteum cyst of right ovary; N83.02 Follicular cyst of left ovary; K21.9 Gastro-esophageal reflux disease without esophagitis; Z88.0 Allergy status to penicillin; Z79.899 Other long term (current) drug therapy
CPT/HCPCS: 36415; 58571; 81025; 85027; 86850; 86900; 86901; 88307; J0131; J0690; J1100; J1170; J1885; J2250; J2405; J3010; S2900

== ENCOUNTER → 2021-05-05 | Outpatient (CLI) | payer BC ==
[~2021-05-05] MED LIST changes: -LR 1,000 ML IV ONE; +OXYC1TAB23 PO; -UNRESOLVED CLARIFICATION ENTRY XX SCH
[2021-05-05 10:39] LABS: HEMATOCRIT 39.5 % (36.0-47.0); HEMOGLOBIN 13.1 g/dl (12.0-15.5); MEAN CORPUSCULAR HEMOGLOBIN 30.2 pg (27.0-33.0); MEAN CORPUSCULAR HGB CONC 33.2 g/dl (32.0-36.5); PLATELET COUNT, AUTOMATED 236 10^3/uL (150-450); RED BLOOD COUNT 4.34 10^6/uL (4.00-5.40); WHITE BLOOD COUNT 4.7 10^3/uL (4.0-10.0)
[2021-05-05 11:34] LABS: ALBUMIN 4.4 GM/DL (3.2-5.2); ALT/SGPT 18 U/L (12-78); BILIRUBIN,TOTAL 0.8 MG/DL (0.2-1.0); BLOOD UREA NITROGEN 17 MG/DL (7-18); CALCIUM LEVEL 9.2 MG/DL (8.5-10.1); CARBON DIOXIDE LEVEL 28 MEQ/L (21-32); CHLORIDE LEVEL 107 MEQ/L (98-107); CHOLESTEROL LEVEL 120 MG/DL (<200); CHOLESTEROL RISK RATIO 1.904 (<5); CREATININE FOR GFR 0.85 MG/DL (0.55-1.30); GLOMERULAR FILTRATION RATE > 60.0 (>58); GLUCOSE, FASTING 77 MG/DL (70-100); HDL CHOLESTEROL 63 MG/DL (>40); LDL CHOLESTEROL 48 MG/DL (<100); NON-HDL-C 57 MG/DL; POTASSIUM SERUM 3.9 MEQ/L (3.5-5.1); SODIUM LEVEL 141 MEQ/L (136-145); TRIGLYCERIDES LEVEL 46 MG/DL (<150)
[2021-05-07 10:53] LABS: FOLLICLE STIMULATING HORMONE 149.4 mIU/mL
== END ==
LOC: M LAB 08:37
PROVIDERS: ATTEND Physician Assistant
DX: N92.0 Excessive and frequent menstruation with regular cycle (principal)

== ENCOUNTER → 2021-06-25 | Outpatient (CLI) | payer BC | LOC: M RAD 08:07 | PROVIDERS: ATTEND Student in an Organized Health Care Education/Training Program | DX: K76.89 Other specified diseases of liver (principal) ==

== ENCOUNTER → 2021-07-20 | Outpatient (REF) | payer BC | LOC: M SFHCLACO 09:32 | PROVIDERS: ATTEND Physician Assistant | DX: D22.5 Melanocytic nevi of trunk (principal) ==

== ENCOUNTER → 2021-12-31 | Outpatient (CLI) | payer BC | LOC: M WHC 10:50 | PROVIDERS: ATTEND Specialist | DX: Z12.31 Encounter for screening mammogram for malignant neoplasm of breast (principal) ==

== ENCOUNTER → 2021-12-31 | Outpatient (CLI) | payer BC ==
[2021-12-31 16:58] LABS: FOLLICLE STIMULATING HORMONE 125.3 mIU/mL; LUTEINIZING HORMONE 85.9 mIU/mL
== END ==
LOC: M PLALAB 12:57
PROVIDERS: ATTEND Specialist
DX: N95.9 Unspecified menopausal and perimenopausal disorder (principal)

== ENCOUNTER → 2023-02-05 | Outpatient (CLI) | payer BC | LOC: M WHC 14:46 | PROVIDERS: ATTEND Specialist | DX: Z12.31 Encounter for screening mammogram for malignant neoplasm of breast (principal) ==

== ENCOUNTER → 2023-02-21 | Outpatient (REF) | payer BC ==
[2023-02-21 13:26] LABS: BASO % 0.7 % (0.0-1.0); EOS # 0.2 10^3/uL (0.0-0.5); EOS % 2.7 % (0.0-3.0); HEMOGLOBIN 13.9 g/dl (12.0-15.5); LYMPH # 1.5 10^3/uL (1.5-5.0); LYMPH % 26.3 % (24.0-44.0); MEAN CORPUSCULAR HEMOGLOBIN 31.4 pg (27.0-33.0); MEAN CORPUSCULAR HGB CONC 33.9 g/dl (32.0-36.5); MEAN CORPUSCULAR VOLUME 92.8 fl (80.0-96.0); MONO # 0.5 10^3/uL (0.0-0.8); MONO % 8.5 % (2.0-8.0); NEUTROPHILS # 3.5 10^3/uL (1.5-8.5); NEUTROPHILS % 61.3 % (36.0-66.0); PLATELET COUNT, AUTOMATED 247 10^3/uL (150-450); RED BLOOD COUNT 4.42 10^6/uL (4.00-5.40); WHITE BLOOD COUNT 5.6 10^3/uL (4.0-10.0)
[2023-02-21 13:42] LABS: HEMOGLOBIN A1c 4.4 % (4.0-6.0)
[2023-02-21 13:53] LABS: ALBUMIN 4.6 G/DL (3.2-5.2); ALKALINE PHOSPHATASE 66 U/L (46-116); ALT/SGPT 20 U/L (7.0-40); AST/SGOT 23 U/L (<34); BILIRUBIN,TOTAL 0.9 MG/DL (0.3-1.2); BLOOD UREA NITROGEN 15 MG/DL (9-23); CALCIUM LEVEL 9.4 MG/DL (8.5-10.1); CARBON DIOXIDE LEVEL 29 MMOL/L (20-31); CHLORIDE LEVEL 104 MMOL/L (98-107); CHOLESTEROL LEVEL 153 MG/DL (<200); CHOLESTEROL RISK RATIO 2.21 (<5); CREATININE FOR GFR 0.79 MG/DL (0.55-1.30); GLOMERULAR FILTRATION RATE > 60.0 (>58); GLUCOSE, FASTING 83 MG/DL (60-100); HDL CHOLESTEROL 69.1 MG/DL (>40); LDL CHOLESTEROL 69.7 MG/DL (<100); NON-HDL-C 83.9 MG/DL; POTASSIUM SERUM 4.6 MMOL/L (3.5-5.1); SODIUM LEVEL 141 MMOL/L (136-145); TOTAL PROTEIN 7.3 G/DL (5.7-8.2); TRIGLYCERIDES LEVEL 71 MG/DL (<150)
== END ==
LOC: M SFHCADAM 10:18
PROVIDERS: ATTEND Physician Assistant
DX: Z00.00 Encounter for general adult medical examination without abnormal findings (principal); J30.89 Other allergic rhinitis; Z82.49 Family history of ischemic heart disease and other diseases of the circulatory system; Z83.3 Family history of diabetes mellitus; K21.9 Gastro-esophageal reflux disease without esophagitis

== ENCOUNTER → 2024-04-16 | Outpatient (REF) | payer BC ==
[2024-04-16 13:28] LABS: BASO % 0.6 % (0.0-1.0); EOS # 0.1 10^3/uL (0.0-0.5); HEMATOCRIT 37.3 % (36.0-47.0); HEMOGLOBIN 12.5 g/dl (12.0-15.5); LYMPH # 1.4 10^3/uL (1.5-5.0); LYMPH % 26.1 % (24.0-44.0); MEAN CORPUSCULAR HGB CONC 33.5 g/dl (32.0-36.5); MEAN CORPUSCULAR VOLUME 92.6 fl (80.0-96.0); MONO # 0.5 10^3/uL (0.0-0.8); MONO % 8.8 % (2.0-8.0); NEUTROPHILS # 3.4 10^3/uL (1.5-8.5); NEUTROPHILS % 62.1 % (36.0-66.0); PLATELET COUNT, AUTOMATED 203 10^3/uL (150-450); RED BLOOD COUNT 4.03 10^6/uL (4.00-5.40); WHITE BLOOD COUNT 5.4 10^3/uL (4.0-10.0)
[2024-04-16 13:45] LABS: ALBUMIN 4.4 G/DL (3.2-5.2); ALKALINE PHOSPHATASE 59 U/L (35-104); ALT/SGPT 14 U/L (7.0-40); AST/SGOT 18 U/L (<34); BILIRUBIN,TOTAL 0.8 MG/DL (0.3-1.2); BLOOD UREA NITROGEN 17 MG/DL (9-23); CALCIUM LEVEL 9.6 MG/DL (8.5-10.1); CARBON DIOXIDE LEVEL 28 MMOL/L (20-31); CHLORIDE LEVEL 107 MMOL/L (98-107); CHOLESTEROL LEVEL 146 MG/DL (<200); CHOLESTEROL RISK RATIO 2.12 (<5); GLOMERULAR FILTRATION RATE > 60.0 (>58); GLUCOSE, FASTING 88 MG/DL (60-100); HDL CHOLESTEROL 68.8 MG/DL (>40); LDL CHOLESTEROL 65.8 MG/DL (<100); NON-HDL-C 77.2 MG/DL; POTASSIUM SERUM 4.7 MMOL/L (3.5-5.1); SODIUM LEVEL 142 MMOL/L (136-145); TOTAL PROTEIN 7.1 G/DL (5.7-8.2); TRIGLYCERIDES LEVEL 57 MG/DL (<150)
[2024-04-16 13:46] LABS: THYROID STIMULATING HORMONE 1.749 uIU/ML (0.55-4.78)
[2024-04-16 14:01] LABS: HEMOGLOBIN A1c 4.7 % (4.0-6.0)
== END ==
LOC: M SFHCADAM 10:04
PROVIDERS: ATTEND Physician Assistant
DX: Z00.00 Encounter for general adult medical examination without abnormal findings (principal); E55.9 Vitamin D deficiency, unspecified; Z82.49 Family history of ischemic heart disease and other diseases of the circulatory system; J30.89 Other allergic rhinitis

== ENCOUNTER → 2024-05-12 | Outpatient (CLI) | payer BC | LOC: M WHC 12:55 | PROVIDERS: ATTEND Physician Assistant | DX: Z12.31 Encounter for screening mammogram for malignant neoplasm of breast (principal); N64.4 Mastodynia | CPT/HCPCS: 77066; G0279 ==

== ENCOUNTER → 2024-07-06 | Outpatient (CLI) | payer BC | LOC: M WHC 15:22 | PROVIDERS: ATTEND Physician Assistant | DX: R92.30 Dense breasts, unspecified (principal); N64.4 Mastodynia ==